=== PATIENT | male | born 1945 | race Hispanic/Latino ===

== ENCOUNTER 2019-07-10 16:42 | Inpatient (IN) | payer MEDICARE, OTHER ==
[2019-07-10] MEDS ORDERED: Diltiazem 125 MG/25 ML ONE (16:59)
[2019-07-10 17:49] LABS: #Eosinphils 0.2 thou/uL (0.0-0.7); #Lymphocytes 0.7 thou/uL (1.20-3.40); #Monocytes 0.9 thou/uL (0.11-0.59); #Neutrophils 8.5 thou/uL (1.40-6.50); %Basophils 0.1 % (0.0-1.0); %Eosinophils 1.7 % (0.0-10.0); %Lymphocytes 6.8 % (21.0-51.0); %Monocytes 9.1 % (0.0-10.0); %Neutrophils 82.3 % (42.0-75.0); Hemoglobin 14.6 g/dL (14.0-18.0); Mean Corpuscular HGB CONC 33.4 g/dL (32.0-36.0); Mean Corpuscular Hemoglobin 31.1 pg (27.0-31.0); Mean Corpuscular Volume 93.1 fL (78.0-98.0); Mean Platelet Volume 8.3 fL (7.4-10.4); Platelet Count 112 thou/uL (130-400); RBC Distribution Width 12.5 % (11.5-14.5); Red Blood Cell (RBC) Count 4.69 mill/uL (4.70-6.10); White Blood Cell (WBC) Count 10.3 thou/uL (4.8-10.8)
[2019-07-10 18:00] LABS: ALT (SGPT) 50 U/L (8-55); AST (SGOT) 59 U/L (5-34); Alkaline Phosphatase 54 U/L (40-110); Anion Gap 16 mmol/L (10-20); BUN (Urea Nitrogen) 12 mg/dL (8.4-25.7); Bilirubin, Total 1.5 mg/dL (0.2-1.2); CK (CPK) 120 U/L (30-200); Calc. Creatinine Clearance 0 mL/min (70-130); Calcium 9.2 mg/dL (7.8-10.44); Carbon Dioxide 20 mmol/L (23-31); Chloride 99 mmol/L (98-107); Estimated GFR-MDRD 82; Globulin 3.1 g/dL (2.4-3.5); Glucose 174 mg/dL (83-110); Lipase 9 U/L (8-78); Potassium 4.6 mmol/L (3.5-5.1); Protein, Total 7.1 g/dL (5.8-8.1); Sodium 130 mmol/L (136-145)
[2019-07-10 18:03] LABS: Platelet Morphology Comment Appears Decreased; RBC Morphology Normal
[2019-07-10 18:18] LABS: CKMB 3.1 ng/mL (0-6.6)
[2019-07-10] MEDS ORDERED: Aspirin Chewable 81 MG TAB ONE (18:33)
[2019-07-10] MEDS ORDERED: Ondansetron ODT 4 MG TAB ONE (18:33)
--- NOTE | 2019-07-10 18:49 | RAD ---
SINGLE VIEW OF THE CHEST: Comparison: None. History: Chest pain, shortness of breath. FINDINGS: Single view of the chest shows a normal sized cardiomediastinal silhouette. There is elevation of the right hemidiaphragm. There is no evidence of consolidation, mass or pleural effusion. The bones are unremarkable. IMPRESSION: No evidence of acute cardiopulmonary disease. POS: EAA
[2019-07-10] MEDS ORDERED: Ondansetron PF 4 MG/2 ML Vial IVP PRN (19:04)
[2019-07-10] MEDS ORDERED: Dextrose 5% in Water 1,000 ML IV PRN (19:06)
[2019-07-10] MEDS ORDERED: Dextrose 50% Abboject 50 ML SYRINGE SLOW IVP PRN (19:06)
--- NOTE | 2019-07-10 19:22 | CT ---
CT OF THE CHEST WITHOUT CONTRAST: Comparison: None History: Shortness of breath, cough, fever, chest palpitations. Brittle diabetic. Technique: Multiple contiguous axial images were obtained in a CT of the chest without contrast. Sagi ttal and coronal reformats were performed. FINDINGS: There is a trace left pleural effusion. There are areas of ground glass attenuation in the bilateral lower lobes. These are slightly more central than peripheral in location. No right pleural effusion i s seen. No upper lobe infiltrates are seen. No suspicious pulmonary nodules are seen. The heart is normal in size. Calcifications are seen in the coronary arteries and aorta. No hilar or mediastinal lymphadenopathy are appreciated on this limited noncontrast examination. The visualized subdiaphragmatic structures are unremarkable. Degenerative changes are seen in the spi ne. The chest wall soft tissues are unremarkable. IMPRESSION: Bilateral lower lobe infiltrates with trace left pleural effusion. POS: EAA
[2019-07-10] MEDS ORDERED: cefTRIAXone\\ROCEPHIN 1 GM in Sodium Chloride 0.9% 100 ML IVPB SCH (20:00)
[2019-07-10 20:36] LABS: Troponin I 0.111 ng/mL (< 0.028)
[2019-07-10] MEDS: Azithromycin 500 MG in Sodium Chloride 0.9% 250 ML 250 ML IVPB SCH (22:19)
[2019-07-10 23:26] LABS: Troponin I 0.132 ng/mL (< 0.028)
[2019-07-10] MEDS: cefTRIAXone\\ROCEPHIN 1 GM in Sodium Chloride 0.9% 100 ML IVPB SCH (23:42)
[2019-07-11 05:24] LABS: #Eosinphils 0.2 thou/uL (0.0-0.7); #Lymphocytes 1.3 thou/uL (1.20-3.40); #Monocytes 0.9 thou/uL (0.11-0.59); #Neutrophils 5.5 thou/uL (1.40-6.50); %Basophils 0.4 % (0.0-1.0); %Eosinophils 2.2 % (0.0-10.0); %Lymphocytes 16.8 % (21.0-51.0); %Monocytes 11.4 % (0.0-10.0); %Neutrophils 69.1 % (42.0-75.0); Hemoglobin 13.1 g/dL (14.0-18.0); Mean Corpuscular HGB CONC 33.2 g/dL (32.0-36.0); Mean Corpuscular Hemoglobin 31.2 pg (27.0-31.0); Mean Corpuscular Volume 93.9 fL (78.0-98.0); Mean Platelet Volume 8.3 fL (7.4-10.4); Platelet Count 107 thou/uL (130-400); RBC Distribution Width 12.5 % (11.5-14.5); Red Blood Cell (RBC) Count 4.19 mill/uL (4.70-6.10)
[2019-07-11 05:44] LABS: Anion Gap 13 mmol/L (10-20); BUN (Urea Nitrogen) 17 mg/dL (8.4-25.7); Calc. Creatinine Clearance 128 mL/min (70-130); Carbon Dioxide 26 mmol/L (23-31); Chloride 99 mmol/L (98-107); Estimated GFR-MDRD 77; Glucose 123 mg/dL (83-110); Potassium 4.1 mmol/L (3.5-5.1); Sodium 134 mmol/L (136-145)
[2019-07-11] MEDS: Diltiazem 125 MG in Sodium Chloride 0.9% 100 ML IVPB SCH (08:19)
[2019-07-11] MEDS: Enoxaparin Sodium 40 MG/0.4 ML SYRINGE SC SCH (08:19)
--- NOTE | 2019-07-11 16:18 | PDOC.HOSPP ---
- Subjective Encounter Date: 07/11/19 Subjective: SOB - Objective Vital Signs & Weight: Vital Signs (12 hours) Temp Pulse Resp BP Pulse Ox 07/11/19 12:00 97.1 F L 69 18 133/63 96 07/11/19 08:20 96.9 F L 98 18 173/79 H 95 Weight Weight 290 lb I&O: 07/10/19 07/11/19 07/12/19 06:59 06:59 06:59 Intake Total 720 Output Total 300 800 Balance 420 -800 Result Diagrams: 07/11/19 05:03 07/11/19 05:03 Additional Labs: Accuchecks 07/11/19 07/10/19 05:52 23:51 POC Glucose 128 H 122 H Hospitalist ROS - Medication Medications: Active Medications Generic Name Dose Route Start Last Admin Trade Name Freq PRN Reason Stop Dose Admin Enoxaparin Sodium 40 mg 07/11/19 09:00 07/11/19 08:19 Lovenox SC 40 mg 0900 LATHA Administration Azithromycin 500 mg/ Sodium 250 mls @ 250 mls/hr 07/10/19 22:00 07/10/19 22: 19 Chloride IVPB 250 mls Q24HR LATHA Administration Ceftriaxone Sodium 1 gm/ 100 mls @ 200 mls/hr 07/10/19 23:00 07/10/19 23:42 Sodium Chloride IVPB 100 mls Q24HR LATHA Administration Diltiazem HCl 125 mg/ Sodium 125 mls @ 5 mls/hr 07/11/19 01:30 07/11/19 08:19 Chloride IVPB 125 mls INF LATHA Administration Protocol 5 MG/HR Sodium Chloride 10 ml 07/10/19 21:00 07/11/19 08:19 Flush - Normal Saline IVF 10 ml Q12HR LATHA Administration - Exam General Appearance: awake alert Eye: PERRL Neck: supple Heart: RRR Respiratory: rhonchi, tachypneic Gastrointestinal: soft, non-tender, normal bowel sounds Neurological: cranial nerve grossly intact Hosp A/P (1) Sepsis Code(s): A41.9 - SEPSIS, UNSPECIFIED ORGANISM Status: Acute (2) RML pneumonia Code(s): J18.9 - PNEUMONIA, UNSPECIFIED ORGANISM Status: Acute - Plan COVID -TIVE. Continue Ceftriaxone and Azithromycin.
--- NOTE | 2019-07-11 19:35 | HP ---
CHIEF COMPLAINT: Shortness of breath. HISTORY OF PRESENT ILLNESS: The patient is a 73-year-old male with past medical history of diabetes, hypertension, TIA, and obesity, who presented to the hospital with complaints of dizziness and shortness of breath and palpitations. The patient was brought by the EMS and en route, his heart rate was found to be 160 and he was given one dose of adenosine with no effect. He was also given one dose of diltiazem 20 mg. His heart rate dropped and he was maintained on a diltiazem drip and brought to the ER. In the ER, the patient was complaining of shortness of breath and cough and was found to be febrile and slightly hypoxic. He denies chest pain or any sick contact. CT scan of the chest revealed right middle lobe consolidation. REVIEW OF SYSTEMS: Negative except as noted in HPI. PAST MEDICAL HISTORY: As discussed above. SOCIAL HISTORY: The patient denies alcohol use or illicit drug use. He is a current tobacco smoker. PAST SURGICAL HISTORY: No past surgical history. ALLERGIES: NO KNOWN ALLERGIES. PHYSICAL EXAMINATION: GENERAL: The patient was alert and oriented x3. HEENT: Head is normocephalic and atraumatic. Extraocular muscles are intact. NECK: Supple. CHEST: Showed wheezing bilaterally. CARDIOVASCULAR: Revealed tachycardia with irregular rhythm. No murmurs, rubs, or gallops. ABDOMEN: Soft and nontender. Bowel sounds were heard. NEUROLOGIC: Revealed normal cranial nerves 2 through 12 and no motor or sensory deficits. ASSESSMENT: 1. Sepsis. 2. Right middle lobe pneumonia. 3. Atrial tachycardia. PLAN: 1. Start azithromycin and ceftriaxone for community-acquired pneumonia. 2. Obtain coronavirus test. 3. Continue diltiazem drip. Job ID: [id number]
[2019-07-11] MEDS: Azithromycin 500 MG in Sodium Chloride 0.9% 250 ML 250 ML IVPB SCH (20:21)
[2019-07-12] MEDS: cefTRIAXone\\ROCEPHIN 1 GM in Sodium Chloride 0.9% 100 ML IVPB SCH ×2 (01:56→22:40)
[2019-07-12] MEDS: Enoxaparin Sodium 40 MG/0.4 ML SYRINGE SC SCH (09:21)
[2019-07-12] MEDS: PROVENTIL INHALER 6.7 G (200 INHALATIONS) INH SCH ×3 (10:23→18:56)
[2019-07-12] MEDS: Diltiazem 125 MG in Sodium Chloride 0.9% 100 ML IVPB SCH (13:37)
[2019-07-12] MEDS: methylPREDNISolone Sod Succ 40 MG VIAL IVP SCH ×3 (13:37→23:40)
--- NOTE | 2019-07-12 15:11 | PDOC.HOSPP ---
- Subjective Encounter Date: 07/12/19 Subjective: Feels better. - Objective Vital Signs & Weight: Vital Signs (12 hours) Temp Pulse Resp BP Pulse Ox 07/12/19 11:54 98.7 F 84 23 H 150/70 H 97 07/12/19 08:00 98.1 F 61 17 175/75 H 95 07/12/19 04:00 122 H 139/67 Weight Weight 290 lb I&O: 07/11/19 07/12/19 07/13/19 06:59 06:59 06:59 Intake Total 720 1565 Output Total 300 2650 Balance 420 -1085 Result Diagrams: 07/11/19 05:03 07/11/19 05:03 Additional Labs: Accuchecks 07/12/19 07/12/19 07/11/19 11:17 06:04 20:48 POC Glucose 185 H 140 H 178 H 07/11/19 07/11/19 16:58 12:02 POC Glucose 139 H 146 H Hospitalist ROS - Medication Medications: Active Medications Generic Name Dose Route Start Last Admin Trade Name Freq PRN Reason Stop Dose Admin Albuterol Sulfate 2 puff 07/12/19 11:00 07/12/19 14:01 Proventil Hfa INH 2 puff [id number] LATHA Administration Enoxaparin Sodium 40 mg 07/11/19 09:00 07/12/19 09:21 Lovenox SC 40 mg 0900 LATHA Administration Azithromycin 500 mg/ Sodium 250 mls @ 250 mls/hr 07/10/19 22:00 07/11/19 20: 21 Chloride IVPB 250 mls Q24HR LATHA Administration Ceftriaxone Sodium 1 gm/ 100 mls @ 200 mls/hr 07/10/19 23:00 07/12/19 01:56 Sodium Chloride IVPB 100 mls Q24HR LATHA Administration Diltiazem HCl 125 mg/ Sodium 125 mls @ 5 mls/hr 07/11/19 01:30 07/12/19 13:37 Chloride IVPB 125 mls INF LATHA Administration Protocol 5 MG/HR Methylprednisolone Sodium Succinate 40 mg 07/12/19 12:00 07/12/19 13:37 Solu-Medrol IVP 40 mg Q6HR LATHA Administration Metoprolol Succinate 50 mg 07/11/19 21:00 07/12/19 09:21 Toprol Xl PO 50 mg BID LATHA Administration Sodium Chloride 10 ml 07/10/19 21:00 07/12/19 09:21 Flush - Normal Saline IVF Not Given Q12HR LATHA - Exam General Appearance: NAD Neck: supple Respiratory: wheezes Gastrointestinal: soft, non-tender, non-distended, normal bowel sounds Neurological: cranial nerve grossly intact Psychiatric: normal affect Hosp A/P (1) Sepsis Code(s): A41.9 - SEPSIS, UNSPECIFIED ORGANISM Status: Acute (2) [facility] pneumonia Code(s): J18.9 - PNEUMONIA, UNSPECIFIED ORGANISM Status: Acute - Plan COVID -TIVE. Continue Ceftriaxone and Azithromycin.
[2019-07-12] MEDS: Azithromycin 500 MG in Sodium Chloride 0.9% 250 ML 250 ML IVPB SCH (21:28)
[2019-07-12] MEDS: HumaLOG 300 UNITS/3 ML VIAL SC PRN (21:29)
[2019-07-12] MEDS ORDERED: Melatonin 3 MG TAB PO PRN (23:27)
[2019-07-12] MEDS ORDERED: Melatonin 3 MG TAB PO SCH (23:30)
[2019-07-13] MEDS: Acetaminophen 325 MG TAB PO PRN ×2 (04:03→21:27)
[2019-07-13] MEDS: methylPREDNISolone Sod Succ 40 MG VIAL IVP SCH ×4 (05:16→23:56)
[2019-07-13] MEDS: PROVENTIL INHALER 6.7 G (200 INHALATIONS) INH SCH ×2 (07:44→11:24)
[2019-07-13] MEDS: Enoxaparin Sodium 40 MG/0.4 ML SYRINGE SC SCH (08:31)
[2019-07-13] MEDS ORDERED: Amiodarone 150 MG in Dextrose 5% in Water 100 ML IVPB SCH (11:45)
--- NOTE | 2019-07-13 11:47 | PDOC.HOSPP ---
- Subjective Encounter Date: 07/13/19 Subjective: Feels better No SOB Remails in Afib with RVR. - Objective Vital Signs & Weight: Vital Signs (12 hours) Temp Pulse Resp BP Pulse Ox 07/13/19 11:24 122 H 24 H 93 L 07/13/19 08:25 95 07/13/19 07:55 96.5 F L 113 H 16 168/92 H 95 07/13/19 07:47 94 L 07/13/19 07:44 118 H 20 94 L 07/13/19 03:45 97.4 F L 118 H 17 139/93 H 93 L 07/13/19 00:34 98.3 F 97 20 133/77 96 Weight Weight 290 lb I&O: 07/12/19 07/13/19 07/14/19 06:59 06:59 06:59 Intake Total 1565 1375 Output Total 2650 1685 Balance -1085 -310 Result Diagrams: 07/11/19 05:03 07/11/19 05:03 Additional Labs: Accuchecks 07/13/19 07/13/19 07/13/19 10:32 05:56 03:12 POC Glucose 264 H 183 H 195 H 07/12/19 07/12/19 20:57 17:14 POC Glucose 246 H 177 H Hospitalist ROS - Medication Medications: Active Medications Generic Name Dose Route Start Last Admin Trade Name Freq PRN Reason Stop Dose Admin Acetaminophen 650 mg 07/10/19 19:04 07/13/19 04:03 Tylenol PO 650 mg Q4H PRN Administration Headache/Fever/Mild Pain (1-3) Albuterol Sulfate 2 puff 07/12/19 11:00 07/13/19 11:24 Proventil Hfa INH 2 puff [id number] LATHA Administration Azithromycin 500 mg/ Sodium 250 mls @ 250 mls/hr 07/10/19 22:00 07/12/19 21: 28 Chloride IVPB 250 mls Q24HR LATHA Administration Ceftriaxone Sodium 1 gm/ 100 mls @ 200 mls/hr 07/10/19 23:00 07/12/19 22:40 Sodium Chloride IVPB 100 mls Q24HR LATHA Administration Insulin Human Lispro 0 units 07/12/19 21:14 07/12/19 21:29 Humalog SC 2 unit .BEDTIME SLIDING SC PRN Administration Bedtime Correctional Scale Methylprednisolone Sodium Succinate 40 mg 07/12/19 12:00 07/13/19 05:16 Solu-Medrol IVP 40 mg Q6HR LATHA Administration Sodium Chloride 10 ml 07/10/19 21:00 07/13/19 08:31 Flush - Normal Saline IVF Not Given Q12HR LATHA Sodium Chloride 10 ml 07/10/19 19:33 07/13/19 05:16 Flush - Normal Saline IVF 10 ml PRN PRN Administration Saline Flush - Exam General Appearance: awake alert ENT: normocephalic atraumatic Neck: supple, no JVD Heart - other findings: IRRIGULAR TACHYCARDIA Gastrointestinal: soft, non-tender, non-distended, normal bowel sounds Neurological: cranial nerve grossly intact, no weakness Hosp A/P (1) Sepsis Code(s): A41.9 - SEPSIS, UNSPECIFIED ORGANISM Status: Acute (2) RML pneumonia Code(s): J18.9 - PNEUMONIA, UNSPECIFIED ORGANISM Status: Acute - Plan COVID -TIVE. Continue Ceftriaxone and Azithromycin. Afib with RVR despite diltiazem drip. Switch to Amiodarone bolus and drip. Metoprolol Succinate 100 mg PO BID. DC albuterol. Ipratropium Neb q6. Cont steroids.
[2019-07-13] MEDS: Amiodarone 450 MG in Dextrose 5% in Water 250 ML IVPB SCH (12:44)
[2019-07-13] MEDS: Ipratropium Bromide 2.5 ml Neb NEB SCH ×2 (13:07→19:05)
[2019-07-13 16:13] LABS: ALT (SGPT) 65 U/L (8-55); AST (SGOT) 67 U/L (5-34); Albumin 4.4 g/dL (3.4-4.8); Alkaline Phosphatase 74 U/L (40-110); Anion Gap 15 mmol/L (10-20); BUN (Urea Nitrogen) 30 mg/dL (8.4-25.7); Bilirubin, Total 0.8 mg/dL (0.2-1.2); Calc. Creatinine Clearance 96 mL/min (70-130); Calcium 9.3 mg/dL (7.8-10.44); Carbon Dioxide 25 mmol/L (23-31); Chloride 97 mmol/L (98-107); Estimated GFR-MDRD 56; Globulin 2.8 g/dL (2.4-3.5); Glucose 214 mg/dL (83-110); Magnesium 2.2 mg/dL (1.6-2.6); Potassium 4.7 mmol/L (3.5-5.1); Protein, Total 7.2 g/dL (5.8-8.1); Sodium 132 mmol/L (136-145)
[2019-07-13] MEDS: HumaLOG 300 UNITS/3 ML VIAL SC PRN ×2 (17:13→21:27)
[2019-07-13] MEDS: Apixaban 5 MG TAB PO SCH (20:21)
[2019-07-13] MEDS: Azithromycin 500 MG in Sodium Chloride 0.9% 250 ML 250 ML IVPB SCH (22:16)
[2019-07-13] MEDS: diphenhydrAMINE 50 MG/ML VIAL IVP SCH (23:03)
[2019-07-13] MEDS: Lorazepam 2 MG/ML VIAL SLOW IVP PRN (23:33)
[2019-07-13] MEDS: cefTRIAXone\\ROCEPHIN 1 GM in Sodium Chloride 0.9% 100 ML IVPB SCH (23:54)
[2019-07-14] MEDS ORDERED: Haloperidol Lactate 5 MG/ML VIAL SLOW IVP SCH (01:30)
[2019-07-14] MEDS: Ipratropium Bromide 2.5 ml Neb NEB SCH ×5 (01:35→23:31)
[2019-07-14] MEDS: methylPREDNISolone Sod Succ 40 MG VIAL IVP SCH (05:22)
[2019-07-14 05:30] LABS: Anion Gap 19 mmol/L (10-20); BUN (Urea Nitrogen) 46 mg/dL (8.4-25.7); Calc. Creatinine Clearance 67 mL/min (70-130); Calcium 9.6 mg/dL (7.8-10.44); Carbon Dioxide 23 mmol/L (23-31); Chloride 100 mmol/L (98-107); Estimated GFR-MDRD 37; Glucose 111 mg/dL (83-110); Magnesium 2.6 mg/dL (1.6-2.6); Potassium 5.2 mmol/L (3.5-5.1); Sodium 137 mmol/L (136-145)
[2019-07-14 05:37] LABS: Hemoglobin 13.3 g/dL (14.0-18.0); Mean Corpuscular HGB CONC 31.5 g/dL (32.0-36.0); Mean Corpuscular Hemoglobin 29.8 pg (27.0-31.0); Mean Corpuscular Volume 94.8 fL (78.0-98.0); Mean Platelet Volume 8.1 fL (7.4-10.4); Platelet Count 234 thou/uL (130-400); RBC Distribution Width 12.7 % (11.5-14.5); Red Blood Cell (RBC) Count 4.46 mill/uL (4.70-6.10); White Blood Cell (WBC) Count 15.3 thou/uL (4.8-10.8)
[2019-07-14 05:52] LABS: Band 1 % (5-11); Lymphocytes 4 % (21-51); MDiff Complete? YES; Monocytes 4 % (0-10); Neutrophil 91 % (42-75)
[2019-07-14] MEDS ORDERED: Ziprasidone 20 MG VIAL ONE (07:47)
[2019-07-14] MEDS ORDERED: Ziprasidone 20 MG VIAL IM PRN (07:57)
[2019-07-14] MEDS ORDERED: predniSONE 20 MG TAB PO SCH (08:00)
[2019-07-14] MEDS ORDERED: Lorazepam 100 ML IVPB SCH (08:00)
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
[2019-07-14] MEDS: Lorazepam 2 MG/ML VIAL SLOW IVP PRN (08:15)
[2019-07-14] MEDS ORDERED: Lorazepam 20 MG/10ML 100 MG in Sodium Chloride 0.9% 50 ML IVPB SCH (08:30)
[2019-07-14] MEDS ORDERED: cefTRIAXone\\ROCEPHIN 1 GM in Sodium Chloride 0.9% 100 ML IVPB SCH (10:30)
[2019-07-14] MEDS: predniSONE 20 MG TAB PO SCH (11:55)
[2019-07-14] MEDS: Apixaban 5 MG TAB PO SCH (11:55)
--- NOTE | 2019-07-14 12:42 | PDOC.HOSPP ---
- Subjective Encounter Date: 07/14/19 Subjective: The patient became confused and combative this morning. Currently sedated in the CCU. - Objective Vital Signs & Weight: Vital Signs (12 hours) Temp Pulse Resp BP Pulse Ox 07/14/19 12:38 66 16 99 07/14/19 09:15 98 07/14/19 08:40 97.2 F L 07/14/19 06:30 95 07/14/19 06:22 93 16 95 07/14/19 03:45 98.0 F 140 H 22 H 129/77 07/14/19 01:35 141 H 22 H 95 Weight Weight 290 lb Most Recent Monitor Data Heart Rate from ECG 84 NIBP 122/82 NIBP BP-Mean 95 Respiration from ECG 12 SpO2 94 I&O: 07/13/19 07/14/19 07/15/19 06:59 06:59 06:59 Intake Total 1375 1190 Output Total 1685 600 4 Balance -310 590 -4 Result Diagrams: 07/14/19 04:53 07/14/19 04:53 Additional Labs: Accuchecks 07/14/19 07/13/19 07/13/19 04:56 21:00 16:44 POC Glucose 113 H 214 H 203 H Hospitalist ROS - Medication Medications: Active Medications Generic Name Dose Route Start Last Admin Trade Name Freq PRN Reason Stop Dose Admin Acetaminophen 650 mg 07/10/19 19:04 07/13/19 21:27 Tylenol PO 650 mg Q4H PRN Administration Headache/Fever/Mild Pain (1-3) Apixaban 5 mg 07/13/19 21:00 07/14/19 11:55 Eliquis PO Not Given BID LATHA Diphenhydramine HCl 50 mg 07/13/19 23:00 07/13/19 23:03 Benadryl IVP 07/24/19 01:00 50 mg NOW LATHA Administration Ceftriaxone Sodium 1 gm/ 100 mls @ 200 mls/hr 07/10/19 23:00 07/13/19 23:54 Sodium Chloride IVPB 100 mls Q24HR LATHA Administration Amiodarone HCl 450 mg/ 259 mls @ 0 mls/hr 07/13/19 11:45 07/13/19 12:44 Dextrose/Water IVPB 259 mls INF LATHA Administration Protocol Per Protocol Dexmedetomidine HCl 200 mcg/ 50 mls @ 0 mls/hr 07/14/19 10:45 07/14/19 11:38 Sodium Chloride IVPB 50 mls INF LATHA Administration Protocol Per Protocol Insulin Human Lispro 0 units 07/10/19 19:06 07/13/19 17:13 Humalog SC 4 unit .MODERATE SLIDING SC PRN Administration Moderate Correctional Scale Insulin Human Lispro 0 units 07/12/19 21:14 07/13/19 21:27 Humalog SC 2 unit .BEDTIME SLIDING SC PRN Administration Bedtime Correctional Scale Ipratropium [employer] 2.5 ml 07/13/19 13:00 07/14/19 12:38 Atrovent NEB 2.5 ml [id number] LATHA Administration Lorazepam 2 mg 07/13/19 23:18 07/14/19 08:15 Ativan SLOW IVP 2 mg Q6H PRN Administration Anxiety/Agitation Melatonin 3 mg 07/12/19 23:27 07/13/19 20:24 Melatonin PO 3 mg HS PRN Administration Insomnia Metoprolol Succinate 100 mg 07/13/19 21:00 07/14/19 11:55 Toprol Xl PO Not Given BID LATHA Prednisone 20 mg 07/14/19 08:00 07/14/19 11:55 Prednisone PO Not Given QAM-WM LATHA Sodium Chloride 10 ml 07/10/19 21:00 07/14/19 11:55 Flush - Normal Saline IVF 10 ml Q12HR LATHA Administration Sodium Chloride 10 ml 07/10/19 19:33 07/14/19 05:22 Flush - Normal Saline IVF 10 ml PRN PRN Administration Saline Flush - Exam General - other findings: Sleeping ENT: normocephalic atraumatic Neck: supple, no JVD Heart: RRR Respiratory: normal chest expansion, no tachypnea Hosp A/P (1) Sepsis Code(s): A41.9 - SEPSIS, UNSPECIFIED ORGANISM Status: Acute (2) RML pneumonia Code(s): J18.9 - PNEUMONIA, UNSPECIFIED ORGANISM Status: Acute (3) Atrial flutter with rapid ventricular response Code(s): I48.92 - UNSPECIFIED ATRIAL FLUTTER Status: Acute (4) MORA (acute kidney injury) Code(s): N17.9 - ACUTE KIDNEY FAILURE, UNSPECIFIED Status: Acute (5) Acute confusion Code(s): R41.0 - DISORIENTATION, UNSPECIFIED Status: Acute - Plan 07/12: COVID -TIVE. Continue Ceftriaxone and Azithromycin. Afib with RVR despite diltiazem drip. Switch to Amiodarone bolus and drip. Metoprolol Succinate 100 mg PO BID. DC albuterol. Ipratropium Neb q6. Cont steroids. 07/13: The patient is now sedated on precedex. Unclear why he became altered. His rhythm changed to atrial flutter. Check CT head. Continue amiodarone. Start lovenox therapeutic dose if no ICH. Start NS @100cc/hr for new MORA. Continue antibiotics for pneumonia.
[2019-07-14] MEDS: Sodium Chloride 0.9% 1,000 ML IV SCH ×2 (12:52→23:27)
--- NOTE | 2019-07-14 14:08 | EKG ---
Test Reason : Blood Pressure : / mmHG Vent. Rate : 155 BPM Atrial Rate : 156 BPM P-R Int : 000 ms QRS Dur : 104 ms QT Int : 316 ms P-R-T Axes : 000 -63 102 degrees QTc Int : 507 ms Supraventricular tachycardia with occasional Premature ventricular complexes Left anterior fascicular block Cannot rule out Inferior infarct (masked by fascicular block?) , age undetermined Abnormal ECG Confirmed by YANCI KU ([id number]), primer expeditor and drier ALBER MENESES ([id number]) on 07/14/2019 2:07:46 PM Referred By: Confirmed By:YANCI KU
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
--- NOTE | 2019-07-14 15:04 | CT ---
BRAIN CT WITHOUT IV CONTRAST: Date: 07/14/2019 HISTORY: Altered mental status, combative. FINDINGS: There is some atrophy and chronic white matter ischemic change. No focal mass or midline shift. No in tra or extra-axial hemorrhage. Sinuses and mastoids are clear of acute process. IMPRESSION: No significant acute intracranial process. No mass or bleed. POS: [facility]
[2019-07-14] MEDS: Amiodarone 450 MG in Dextrose 5% in Water 250 ML IVPB SCH (15:57)
[2019-07-14] MEDS: HumaLOG 300 UNITS/3 ML VIAL SC PRN (16:50)
[2019-07-14] MEDS: diphenhydrAMINE 50 MG/ML VIAL IVP SCH (23:21)
[2019-07-14] MEDS: cefTRIAXone\\ROCEPHIN 1 GM in Sodium Chloride 0.9% 100 ML IVPB SCH (23:25)
[2019-07-15 04:50] LABS: Band 1 % (5-11); Hemoglobin 13.4 g/dL (14.0-18.0); Lymphocytes 11 % (21-51); MDiff Complete? YES; Mean Corpuscular HGB CONC 33.6 g/dL (32.0-36.0); Mean Corpuscular Hemoglobin 31.7 pg (27.0-31.0); Mean Corpuscular Volume 94.2 fL (78.0-98.0); Monocytes 4 % (0-10); Neutrophil 84 % (42-75); Platelet Count 135 thou/uL (130-400); RBC Distribution Width 12.6 % (11.5-14.5); Red Blood Cell (RBC) Count 4.22 mill/uL (4.70-6.10); White Blood Cell (WBC) Count 7.5 thou/uL (4.8-10.8)
[2019-07-15 04:56] LABS: Anion Gap 15 mmol/L (10-20); BUN (Urea Nitrogen) 51 mg/dL (8.4-25.7); Calc. Creatinine Clearance 104 mL/min (70-130); Calcium 8.5 mg/dL (7.8-10.44); Carbon Dioxide 23 mmol/L (23-31); Chloride 104 mmol/L (98-107); Estimated GFR-MDRD 61; Glucose 173 mg/dL (83-110); Potassium 4.6 mmol/L (3.5-5.1); Sodium 137 mmol/L (136-145)
[2019-07-15] MEDS: Lorazepam 2 MG/ML VIAL SLOW IVP PRN ×2 (05:05→13:46)
[2019-07-15] MEDS: Amiodarone 450 MG in Dextrose 5% in Water 250 ML IVPB SCH ×2 (05:10→21:00)
[2019-07-15] MEDS: Ipratropium Bromide 2.5 ml Neb NEB SCH ×3 (06:26→19:39)
[2019-07-15] MEDS: predniSONE 20 MG TAB PO SCH (09:04)
--- NOTE | 2019-07-15 09:53 | EKG ---
Test Reason : Blood Pressure : / mmHG Vent. Rate : 066 BPM Atrial Rate : 264 BPM P-R Int : 000 ms QRS Dur : 102 ms QT Int : 448 ms P-R-T Axes : 265 -38 -18 degrees QTc Int : 469 ms Atrial flutter with 4:1 A-V conduction Left axis deviation Abnormal ECG When compared with ECG of 10-JUL-2019 16:53, (Unconfirmed) Significant changes have occurred Confirmed by DR. Milagros ESPITIA ([id number]) on 07/15/2019 9:52:39 AM Referred By: JAVED Confirmed By:DR. Milagros ESPITIA
[2019-07-15] MEDS ORDERED: Ipratropium Bromide 2.5 ml Neb ONE (10:18)
--- NOTE | 2019-07-15 10:23 | PRG ---
DATE OF SERVICE: 07/15/2019 SUBJECTIVE: Jacob Alvarado is a little bit more responsive. Still agitated is confused. CT brain is negative. OBJECTIVE: VITAL SIGNS: Maximum temperature is 98, blood pressure 117/76, respiratory rate 18. CHEST: No wheezing or crackles. CARDIAC: Normal S1 and S2. No gallops. ABDOMEN: No masses. LABORATORY DATA: White count is normal. IMPRESSION: Metabolic encephalopathy, lower lobe pneumonia. Cultures are negative. Continue dexamethasone. Continue ceftriaxone. His renal function is much improved. Slow hydration. Pulmonary will follow while in the ICU. Job ID: [id number]
[2019-07-15] MEDS: HumaLOG 300 UNITS/3 ML VIAL SC PRN ×2 (11:23→16:33)
[2019-07-15] MEDS: Sodium Chloride 0.9% 1,000 ML IV SCH (11:23)
--- NOTE | 2019-07-15 14:40 | CON ---
DATE OF CONSULTATION: 07/15/2019 INDICATION FOR CONSULTATION: A 73-year-old gentleman, who has developed atrial flutter. HISTORY OF PRESENT ILLNESS: This is a 73-year-old gentleman, origin, has a history of diabetes, hypertension, and obesity. He apparently was brought to the hospital after he complained of shortness of breath, dizziness, and palpitations. His heart rate was in the 160s and most likely was in atrial flutter, at that time, he was given one dose of adenosine, had no effect, and then he was started on IV diltiazem and brought to the emergency room. Since that time, he became agitated and was placed on Precedex to control some of his violent behavior. Otherwise, he has remained stable, he continues to be in atrial flutter. I believe an Electrophysiology consultation has also been requested. At this time, the patient is in the intensive care unit. Vital signs are stable and heart rate is in the 60s and still shows atrial flutter. PAST MEDICAL HISTORY: He has had no significant complaints except I believe he does have some history of the hypertension and diabetes. He has had a TIA in the past apparently. REVIEW OF SYSTEMS: Please refer to the notes already dictated. SOCIAL HISTORY: He has no history of alcohol or tobacco abuse at this time. He said he stopped smoking about 25 years ago. PAST SURGICAL HISTORY: He denies any surgical history according to the records. ALLERGIES: NONE. MEDICATIONS: 1. Presently, he is being started on amiodarone drip. 2. He is on ceftriaxone. 3. He is also on Precedex. He has also been given; 1. Eliquis. 2. Nebulizer treatments. 3. Metoprolol 100 mg b.i.d. 4. Multivitamin. He has been started on; 1. Prednisone. 2. Thiamin. 3. Tylenol. 4. Other p.r.n. medications. He has been ruled out for COVID apparently. PHYSICAL EXAMINATION: GENERAL: Reveals a middle-aged gentleman. VITAL SIGNS: Blood pressure at this time 122/73, heart rate 69 and shows what appears to be atrial flutter, O2 saturation is 98%, respiratory rate is about 13. HEENT: Unremarkable. CHEST: Actually clear to auscultation without any rales, rhonchi, or wheezing. CARDIOVASCULAR: The rate appears to be regular. I did not hear any gross murmurs. There were no heaves or thrills. ABDOMEN: Shows obesity, soft and nontender. EXTREMITIES: Showed no clubbing, cyanosis, or edema. I cannot palpate pedal pulses. NEUROLOGIC: The patient does appear to be somewhat sleepy or lethargic, but easily awakens. He does answer some questions, whether or not he is completely oriented to place is unclear, but he did say he needs to go home to see his family in [place]. . LABORATORY DATA: Today show a WBC of 7.5, hemoglobin 13.4, hematocrit of 39.8, and platelet count is 135,000. His sodium is 137, potassium 4.6. His BUN was 51 with creatinine of 1.18, blood sugar was 173. His cardiac enzymes on arrival here were indeterminate, but was still increasing from the time he got here on 07/09, the first set of troponin-I was 0.09 and increased up to 0.132 and I did not see any further cardiac enzymes were obtained. We will try to obtain some cardiac enzymes, but I would suspect it would be elevated due to the atrial flutter and rapid ventricular response. IMPRESSION: 1. Atrial flutter, most likely new onset. Electrophysiology has already been consulted. I would agree with continuing the amiodarone at this time. EKG does show what appeared to be atrial flutter when the patient arrived on 07/09. It appears that he has been in atrial flutter since that time. 2. History of diabetes, this will be dealt with by the primary care service. 3. Agitation. He has been in intensive care unit due to the Precedex infusion to control his behavior. 4. Probable pneumonia, on chest x-ray it appeared to be a right middle lobe pneumonia. The WBC was elevated. The patient may have underlying sepsis. At this time, I would agree with the present management, and most likely, he will need to undergo electrophysiological evaluation, possible ablation of the atrial flutter since this particular arrhythmia is very difficult to treat by medication. At this time, we will continue to control the heart rate and I would agree with the oral anticoagulation at this time. We will review the echocardiogram and further recommendations will depend on the results of the echo. Job ID: [id number] [facility]
[2019-07-15] MEDS ORDERED: diphenhydrAMINE 25 MG CAP PO PRN (15:47)
[2019-07-15] MEDS ORDERED: Lorazepam 2 MG/ML VIAL SLOW IVP PRN (15:48)
--- NOTE | 2019-07-15 15:58 | RAD ---
Chest AP view INDICATION: 73-year-old male with chest congestion and wheezing COMPARISON: Prior exam dated July 10, 2019 FINDINGS: Lungs: There is worsening perihilar interstitial and airspace opacities. Cardiac silhouette: There is stable moderate cardiomegaly Pulmonary vasculature: There is worsening pulmonary vascular congestion Pleural spaces: There is stable elevation the right hemidiaphragm Upper abdomen: No abnormality seen. Osseous structures: No acute osseous abnormality. Additional findings: None. IMPRESSION: Moderate cardiomegaly worsening pulmonary vascular congestion and worsening perihilar interstitial an d airspace opacities may reflect a component of volume overload or CHF. The perihilar interstitial airspace opacities may also reflect worsening pneumonia. Recommend correlation with the clinical exam . Continued radiographic follow-up is recommended.
[2019-07-15] MEDS ORDERED: Azithromycin 250 MG TAB PO SCH (16:08)
--- NOTE | 2019-07-15 16:09 | PDOC.HOSPP ---
- Subjective Encounter Date: 07/15/19 Encounter Time: 03:30 Subjective: The patient extremely confused and abusive per nursing staff. He was calm with precedex. He got ativan and benadryl overnight. - Objective Vital Signs & Weight: Vital Signs (12 hours) Temp Pulse Resp Pulse Ox 07/15/19 12:58 69 20 99 07/15/19 10:22 90 20 100 07/15/19 08:00 100 07/15/19 07:00 98.0 F 07/15/19 06:28 93 L 07/15/19 06:26 93 20 93 L 07/15/19 05:33 95 Weight Weight 290 lb Most Recent Monitor Data Heart Rate from ECG 70 NIBP 127/74 NIBP BP-Mean 91 Respiration from ECG 20 SpO2 97 I&O: 07/14/19 07/15/19 07/16/19 06:59 06:59 06:59 Intake Total 1190 3029.6 475 Output Total 600 1635 400 Balance 590 1394.6 75 Result Diagrams: 07/15/19 03:52 07/15/19 03:52 Additional Labs: Accuchecks 07/15/19 07/15/19 07/14/19 11:20 05:49 21:04 POC Glucose 159 H 143 H 179 H 07/14/19 16:28 POC Glucose 162 H Hospitalist ROS - Review of Systems Constitutional: denies: fever, chills - Medication Medications: Active Medications Generic Name Dose Route Start Last Admin Trade Name Freq PRN Reason Stop Dose Admin Acetaminophen 650 mg 07/10/19 19:04 07/13/19 21:27 Tylenol PO 650 mg Q4H PRN Administration Headache/Fever/Mild Pain (1-3) Ceftriaxone Sodium 1 gm/ 100 mls @ 200 mls/hr 07/10/19 23:00 07/14/19 23:25 Sodium Chloride IVPB 100 mls Q24HR LATHA Administration Amiodarone HCl 450 mg/ 259 mls @ 0 mls/hr 07/13/19 11:45 07/15/19 05:10 Dextrose/Water IVPB 259 mls INF LATHA Administration Protocol Per Protocol Sodium Chloride 1,000 mls @ 100 mls/hr 07/14/19 12:45 07/15/19 11:23 Normal Saline 0.9% IV 1,000 mls .Q10H LATHA Administration Insulin Human Lispro 0 units 07/10/19 19:06 07/15/19 11:23 Humalog SC 2 unit .MODERATE SLIDING SC PRN Administration Moderate Correctional Scale Insulin Human Lispro 0 units 07/12/19 21:14 07/13/19 21:27 Humalog SC 2 unit .BEDTIME SLIDING SC PRN Administration Bedtime Correctional Scale Ipratropium [place] 2.5 ml 07/13/19 13:00 07/15/19 12:58 Atrovent NEB 2.5 ml [id number] LATHA Administration Melatonin 3 mg 07/12/19 23:27 07/13/19 20:24 Melatonin PO 3 mg HS PRN Administration Insomnia Metoprolol Succinate 100 mg 07/13/19 21:00 07/15/19 09:03 Toprol Xl PO 100 mg BID LATHA Administration Prednisone 20 mg 07/14/19 08:00 07/15/19 09:04 Prednisone PO 20 mg QAM-WM LATHA Administration Sodium Chloride 10 ml 07/10/19 21:00 07/15/19 09:04 Flush - Normal Saline IVF 10 ml Q12HR LATHA Administration Sodium Chloride 10 ml 07/10/19 19:33 07/14/19 05:22 Flush - Normal Saline IVF 10 ml PRN PRN Administration Saline Flush - Exam General Appearance: NAD, awake alert Eye: PERRL, anicteric sclera ENT: normocephalic atraumatic, no oropharyngeal lesions Neck: supple, no JVD Heart: RRR, no murmur, no gallops, no rubs Respiratory - other findings: significant wheezing Gastrointestinal: soft, non-tender, non-distended, normal bowel sounds Extremities: no cyanosis, no clubbing, 2+ LE edema (in upper and lower extremities) Skin: normal turgor, no lesions, no rashes Neurological: cranial nerve grossly intact, no focal deficits, no new deficit Hosp A/P - Plan CT brain: no acute process Chest X ray 07/14: moderate cardiomegaly, worsening bilateral opacities vs edema ECHO: EF 50-55%, moderate MR, moderate TR This is a 73 year old male who presented with pneumonia, transferred to CCU For agitation and encephalopathy Acute encephalopathy - unclear etiology - on precedex drip. Possibly alcohol withdrawal? - ativan prn - continue thiamine and folic acid Acute hypoxic respiratory failure secondary to pneumonia vs pulm congestion - patient on 2L nasal cannula -chest X ray worsening - cotninue ceftriaxone, currently day 5. Received azithro 07/09 - 07/12. Will switch to doxycycline for few more days - will give one dose of 20 mg IV lasix due to edema. ECHO showed no wall motion abnormalities - troponin trended up to 0.132, repeat in am - will give one dose of 20 mg IV lasix Aflutter - on amiodarone drip - cardiology following - ECHO shows no sign of ischemia Anemia - hemoglobin stable, will monitor
[2019-07-15] MEDS ORDERED: diphenhydrAMINE 25 MG in Sodium Chloride 0.9% 50 ML IVPB PRN (16:11)
[2019-07-15] MEDS ORDERED: Furosemide 20 MG/2 ML VIAL SLOW IVP SCH (16:15)
[2019-07-15] MEDS ORDERED: Furosemide 40 MG/4 ML VIAL SLOW IVP SCH (16:15)
[2019-07-15] MEDS: cefTRIAXone\\ROCEPHIN 1 GM in Sodium Chloride 0.9% 100 ML IVPB SCH (22:05)
[2019-07-16] MEDS: Ipratropium Bromide 2.5 ml Neb NEB SCH ×4 (01:05→18:30)
[2019-07-16 04:27] LABS: Anion Gap 14 mmol/L (10-20); BUN (Urea Nitrogen) 48 mg/dL (8.4-25.7); Calc. Creatinine Clearance 100 mL/min (70-130); Calcium 8.6 mg/dL (7.8-10.44); Carbon Dioxide 25 mmol/L (23-31); Chloride 103 mmol/L (98-107); Estimated GFR-MDRD 58; Glucose 139 mg/dL (83-110); Sodium 137 mmol/L (136-145)
[2019-07-16 04:36] LABS: Hemoglobin 13.7 g/dL (14.0-18.0); Lymphocytes 7 % (21-51); MDiff Complete? YES; Mean Corpuscular HGB CONC 32.8 g/dL (32.0-36.0); Mean Corpuscular Hemoglobin 31.5 pg (27.0-31.0); Mean Platelet Volume 8.6 fL (7.4-10.4); Monocytes 16 % (0-10); Neutrophil 77 % (42-75); Platelet Count 148 thou/uL (130-400); RBC Distribution Width 12.6 % (11.5-14.5); Red Blood Cell (RBC) Count 4.34 mill/uL (4.70-6.10)
[2019-07-16] MEDS: predniSONE 20 MG TAB PO SCH (08:55)
[2019-07-16] MEDS: Multivitamin W/ Minerals 1 TAB PO SCH (08:57)
[2019-07-16] MEDS: Thiamine 100 MG TAB PO SCH (08:57)
[2019-07-16] MEDS ORDERED: DC Sedation Protocol FS ONE (09:44)
--- NOTE | 2019-07-16 10:25 | PRG ---
DATE OF SERVICE: 07/16/2019 SUBJECTIVE: This morning, he is still agitated and lethargic, but arousable. OBJECTIVE: VITAL SIGNS: Temperature 98, pulse 68, blood pressure 127/83, O2 saturations 96%, respiratory rate 18. CHEST: No wheezing or crackles. CARDIAC: Normal S1 and S2. No gallops. ABDOMEN: No masses. LABORATORY DATA: Lytes normal. . Glucose 142. DIAGNOSTIC DATA: X-ray taken today shows slight cardiomegaly. Some cephalization. IMPRESSION: Metabolic encephalopathy, morbid obesity, normal ejection fraction, and mild azotemia. PLAN: I will continue his Rocephin, PT supportive care. All cultures are negative. He can be transferred out of the ICU with a sitter since he still is agitated and encephalopathic. Job ID: [id number]
[2019-07-16] MEDS: Amiodarone 450 MG in Dextrose 5% in Water 250 ML IVPB SCH ×2 (10:51→22:49)
[2019-07-16] MEDS: HumaLOG 300 UNITS/3 ML VIAL SC PRN ×2 (10:53→18:25)
--- NOTE | 2019-07-16 14:28 | PDOC.HOSPP ---
- Subjective Encounter Date: 07/16/19 Encounter Time: 11:30 Subjective: The patient is doing better. He is oriented times three per nursing staff and more responsive. He did get lasix yesterday and wet his bed multiple times. No longer agitated. Nursing thinks that he was sleep deprived for mulitple days which caused this. Chest congestion has improved per patient and is coughing less - Objective Vital Signs & Weight: Vital Signs (12 hours) Temp Pulse Resp BP Pulse Ox 07/16/19 13:35 97.9 F 105 H 21 H 149/89 H 97 07/16/19 12:57 85 18 99 07/16/19 12:00 98.7 F 07/16/19 08:00 97.8 F 94 L 07/16/19 07:34 68 14 100 07/16/19 04:00 97.8 F Weight Weight 290 lb Most Recent Monitor Data Heart Rate from ECG 93 NIBP 108/65 NIBP BP-Mean 79 Respiration from ECG 17 SpO2 93 I&O: 07/15/19 07/16/19 07/17/19 06:59 06:59 06:59 Intake Total 3029.6 2953 782 Output Total 1635 750 650 Balance 1394.6 2203 132 Result Diagrams: 07/16/19 03:35 07/16/19 03:35 Additional Labs: Accuchecks 07/15/19 07/15/19 20:45 16:25 POC Glucose 142 H 182 H Hospitalist ROS - Review of Systems Constitutional: denies: fever, chills - Medication Medications: Active Medications Generic Name Dose Route Start Last Admin Trade Name [place] PRN Reason Stop Dose Admin Acetaminophen 650 mg 07/10/19 19:04 07/13/19 21:27 Tylenol PO 650 mg Q4H PRN Administration Headache/Fever/Mild Pain (1-3) Ceftriaxone Sodium 1 gm/ 100 mls @ 200 mls/hr 07/10/19 23:00 07/15/19 22:05 Sodium Chloride IVPB 100 mls Q24HR LATHA Administration Amiodarone HCl 450 mg/ 259 mls @ 0 mls/hr 07/13/19 11:45 07/16/19 10:51 Dextrose/Water IVPB 259 mls INF LATHA Administration Protocol Per Protocol Dexmedetomidine HCl 400 mcg/ 100 mls @ 0 mls/hr 07/15/19 14:00 07/16/19 05:46 Sodium Chloride IVPB 100 mls INF LATHA Administration Protocol Per Protocol Doxycycline Hyclate 100 mg/ 100 mls @ 100 mls/hr 07/15/19 17:00 07/16/19 05: 45 Sodium Chloride IVPB 100 mls 0500,1700 LATHA Administration Insulin Human Lispro 0 units 07/10/19 19:06 07/16/19 10:53 Humalog SC 2 unit .MODERATE SLIDING SC PRN Administration Moderate Correctional Scale Insulin Human Lispro 0 units 07/12/19 21:14 07/13/19 21:27 Humalog SC 2 unit .BEDTIME SLIDING SC PRN Administration Bedtime Correctional Scale Ipratropium [place] 2.5 ml 07/13/19 13:00 07/16/19 12:57 Atrovent NEB 2.5 ml [id number] LATHA Administration Iron/Minerals/Multivitamins 1 tab 07/16/19 09:00 07/16/19 08:57 Theragran M PO 07/19/19 09:01 1 tab DAILY LATHA Administration Lorazepam 2 mg 07/15/19 15:48 07/15/19 17:10 Ativan SLOW IVP 2 mg Q4H PRN Administration Anxiety/Agitation Melatonin 3 mg 07/12/19 23:27 07/13/19 20:24 Melatonin PO 3 mg HS PRN Administration Insomnia Metoprolol Succinate 100 mg 07/13/19 21:00 07/16/19 08:55 Toprol Xl PO 100 mg BID LATHA Administration Prednisone 20 mg 07/14/19 08:00 07/16/19 08:55 Prednisone PO 20 mg QAM-WM LATHA Administration Sodium Chloride 10 ml 07/10/19 21:00 07/16/19 09:02 Flush - Normal Saline IVF 10 ml Q12HR LATHA Administration Sodium Chloride 10 ml 07/10/19 19:33 07/14/19 05:22 Flush - Normal Saline IVF 10 ml PRN PRN Administration Saline Flush Thiamine HCl 100 mg 07/16/19 09:00 07/16/19 08:57 Thiamine PO 07/19/19 09:01 100 mg DAILY LATHA Administration - Exam General Appearance: NAD, awake alert General - other findings: obese Eye: PERRL, anicteric sclera ENT: normocephalic atraumatic, no oropharyngeal lesions Neck: no JVD Heart: RRR, no murmur, no gallops, no rubs Respiratory: CTAB, no wheezes, no rales, no ronchi Respiratory - other findings: diffuse wheezing mild Gastrointestinal: soft, non-tender, non-distended Extremities - other findings: mild edema Skin: normal turgor, no lesions, no rashes Neurological: cranial nerve grossly intact, normal sensation to touch, no focal deficits, no new deficit Musculoskeletal: normal tone, normal strength, no muscle wasting Hosp A/P - Plan CT brain: no acute process Chest X ray 07/14: moderate cardiomegaly, worsening bilateral opacities vs edema ECHO: EF 50-55%, moderate MR, moderate TR This is a 73 year old male who presented with pneumonia, transferred to CCU For agitation and encephalopathy Acute encephalopathy - unclear etiology. Precedex drip off. Could have been from alcohol withdrawal vs sleep deprivation - continue thiamine and folic acid Acute hypoxic respiratory failure secondary to pneumonia vs pulm congestion - patient on room air - continue ceftriaxone day 08/26 - s/p azithro 07/09 - 07/12. Doxycycline started 07/14, continue for two more days - s/p one dose of IV lasix 07/14 for pulm edema. Will repeat X ray tomorrow - troponin went up to 0.132, repeat troponin in am Aflutter - on amiodarone drip, continue per cardiology - cardiology following - ECHO shows no sign of ischemia Anemia - HB 11, MCV 98, check B12/folate tomorrow. TSh normal Dispo: pending weaning off of amiodarone drip
[2019-07-16] MEDS ORDERED: Furosemide 20 MG/2 ML VIAL SLOW IVP SCH (16:30)
--- NOTE | 2019-07-16 16:30 | PDOC.CPN ---
- Subjective Date: 07/16/19 Time: 16:41 Interval history: The pt seen and examined. No overnight events. No cardiac complaints. - Objective Allergies/Adverse Reactions: Allergies Allergy/AdvReac Type Severity Reaction Status Date / Time No Known Drug Allergies Allergy Verified 07/10/19 22:43 Visit Medications: Current Medications Acetaminophen (Tylenol) 650 mg PO Q4H PRN PRN Reason: Headache/Fever/Mild Pain (1-3) Last Admin: 07/13/19 21:27 Dose: 650 mg Dextrose/Water (Dextrose 50%) 25 gm SLOW IVP PRN PRN PRN Reason: Hypoglycemia Diphenhydramine HCl (Benadryl) 25 mg PO Q6H PRN PRN Reason: Itching & Insomnia Furosemide (Lasix) 20 mg SLOW IVP ONE LATHA Glucagon (Glucagon) 1 mg IM PRN PRN PRN Reason: Hypoglycemia Dextrose/Water (D5w) 1,000 mls @ 0 mls/hr IV .Q0M PRN PRN Reason: Hypoglycemia Ceftriaxone Sodium 1 gm/ (Sodium Chloride) 100 mls @ 200 mls/hr IVPB Q24HR LATHA Last Admin: 07/15/19 22:05 Dose: 100 mls Amiodarone HCl 450 mg/ (Dextrose/Water) 259 mls @ 0 mls/hr IVPB INF LATHA; Protocol Last Admin: 07/16/19 10:51 Dose: 259 mls Doxycycline Hyclate 100 mg/ (Sodium Chloride) 100 mls @ 100 mls/hr IVPB 0500, 1700 LATHA Last Admin: 07/16/19 16:14 Dose: 100 mls Diphenhydramine HCl 25 mg/ (Sodium Chloride) 50.5 mls @ 150 mls/hr IVPB Q6H PRN PRN Reason: Nausea Insulin Human Lispro (Humalog) 0 units SC .MODERATE SLIDING SC PRN PRN Reason: Moderate Correctional Scale Last Admin: 07/16/19 10:53 Dose: 2 unit Insulin Human Lispro (Humalog) 0 units SC .BEDTIME SLIDING SC PRN PRN Reason: Bedtime Correctional Scale Last Admin: 07/13/19 21:27 Dose: 2 unit Ipratropium Chloride (Atrovent) 2.5 ml NEB [id number] LATHA Last Admin: 07/16/19 12:57 Dose: 2.5 ml Iron/Minerals/Multivitamins (Theragran M) 1 tab PO DAILY [facility] Stop: 07/19/19 09:01 Last Admin: 07/16/19 08:57 Dose: 1 tab Lorazepam (Ativan) 2 mg SLOW IVP Q4H PRN PRN Reason: Anxiety/Agitation Last Admin: 07/15/19 17:10 Dose: 2 mg Melatonin (Melatonin) 3 mg PO HS PRN PRN Reason: Insomnia Last Admin: 07/13/19 20:24 Dose: 3 mg Metoprolol Succinate (Toprol Xl) 100 mg PO BID [facility] Last Admin: 07/16/19 08:55 Dose: 100 mg Ondansetron HCl (Zofran) 4 mg IVP Q6H PRN PRN Reason: Nausea/Vomiting Prednisone (Prednisone) 20 mg PO QAM-WM [facility] Last Admin: 07/16/19 08:55 Dose: 20 mg Sodium Chloride (Flush - Normal Saline) 10 ml IVF Q12HR [facility] Last Admin: 07/16/19 09:02 Dose: 10 ml Sodium Chloride (Flush - Normal Saline) 10 ml IVF PRN PRN PRN Reason: Saline Flush Last Admin: 07/14/19 05:22 Dose: 10 ml Thiamine HCl (Thiamine) 100 mg PO DAILY [facility] Stop: 07/19/19 09:01 Last Admin: 07/16/19 08:57 Dose: 100 mg Vital Signs & Weight: Vital Signs Temp Pulse Resp BP BP Pulse Ox 07/16/19 16:06 97.8 F 103 H 20 165/99 H 94 L 07/16/19 13:35 97.9 F 105 H 21 H 149/89 H 97 07/16/19 12:57 85 18 99 07/16/19 12:00 98.7 F 07/16/19 08:00 97.8 F 94 L 07/16/19 07:34 68 14 100 Weight 290 lb - Physical Exam General: alert & oriented x3 HEENT: mucus membranes moist Neck: supple neck Cardiac: regular rate and rhythm, S1/S2 Lungs: decreased breath sounds Neuro: cranial nerve 2-12 intact Extremities: no edema - Labs Result Diagrams: 07/16/19 03:35 07/16/19 03:35 Troponin/CKMB CK-MB (CK-2) 3.1 ng/mL (0-6.6) 07/10/19 17:08 Troponin I 0.132 ng/mL (< 0.028) H 07/10/19 22:54 - Telemetry Supraventricular conduction: atrial flutter - Assessment/Plan Assessment/Plan: 1. New-onset Aflutter with RVR - well controlled HR; On Amiodarone drip and Toprol 100mg BID; Lovenox will be started from tonight for [id number] score 5 (age, HTN, TIA, DM) 2. Sepsis 2/2 Rt PNA - 3. HTN - stable 4. DM type 2 - 5. Obese - strongly recommend weight management 6. hx of TIA 7. Tobacco abuse - he just quit dipping tobacco about 2 months ago. MAR reviewed * Echo with EF 50-55%, mod-severe LAE, mod MR, mild , and mild-mod TR
[2019-07-16] MEDS: Enoxaparin Sodium 120 MG/0.8 ML SYRINGE SC SCH (20:40)
[2019-07-16] MEDS: cefTRIAXone\\ROCEPHIN 1 GM in Sodium Chloride 0.9% 100 ML IVPB SCH (22:45)
[2019-07-17] MEDS: Ipratropium Bromide 2.5 ml Neb NEB SCH ×4 (00:27→18:55)
[2019-07-17] MEDS: Acetaminophen 325 MG TAB PO PRN (01:22)
[2019-07-17] MEDS ORDERED: Labetalol HCl 100 MG/20 ML VIAL SLOW IVP PRN (01:27)
[2019-07-17] MEDS ORDERED: Metoprolol Tartrate 5 MG/5 ML VIAL IVP PRN (01:29)
[2019-07-17] MEDS ORDERED: Cepastat Lozenges 1 LOZ PO PRN (03:46)
[2019-07-17 05:02] LABS: Anion Gap 14 mmol/L (10-20); BUN (Urea Nitrogen) 37 mg/dL (8.4-25.7); Calc. Creatinine Clearance 97 mL/min (70-130); Calcium 9.3 mg/dL (7.8-10.44); Carbon Dioxide 28 mmol/L (23-31); Chloride 100 mmol/L (98-107); Estimated GFR-MDRD 56; Glucose 148 mg/dL (83-110); Potassium 4.5 mmol/L (3.5-5.1); Sodium 137 mmol/L (136-145)
[2019-07-17 05:56] LABS: Band 5 % (5-11); Eosinophils 1 % (0-10); Hemoglobin 15.1 g/dL (14.0-18.0); Lymphocytes 18 % (21-51); MDiff Complete? YES; Mean Corpuscular HGB CONC 31.8 g/dL (32.0-36.0); Mean Corpuscular Hemoglobin 30.2 pg (27.0-31.0); Mean Platelet Volume 8.4 fL (7.4-10.4); Monocytes 12 % (0-10); Neutrophil 64 % (42-75); Platelet Count 199 thou/uL (130-400); RBC Distribution Width 12.4 % (11.5-14.5); Red Blood Cell (RBC) Count 4.99 mill/uL (4.70-6.10); White Blood Cell (WBC) Count 10.5 thou/uL (4.8-10.8)
[2019-07-17] MEDS: Thiamine 100 MG TAB PO SCH (08:12)
[2019-07-17] MEDS: predniSONE 20 MG TAB PO SCH (08:12)
[2019-07-17] MEDS: Multivitamin W/ Minerals 1 TAB PO SCH (08:12)
[2019-07-17] MEDS: Enoxaparin Sodium 120 MG/0.8 ML SYRINGE SC SCH ×2 (08:12→21:55)
[2019-07-17] MEDS ORDERED: Isosorbide Mononitrate (ER) 30 MG TAB PO SCH (09:15)
--- NOTE | 2019-07-17 09:52 | PRG ---
DATE OF SERVICE: 07/17/2019 SUBJECTIVE: Jacob Alvarado is a 73-year-old gentleman this morning is no longer encephalopathic. He has a cough with yellow sputum. OBJECTIVE: VITAL SIGNS: Temperature 97, pulse 84, respiratory rate 20, saturations are 95% on room air, blood pressure 189/94, still on amiodarone drip. CHEST: Decreased breath sounds. No wheezing. CARDIAC: Normal S1 and S2. ABDOMEN: No masses. ASSESSMENT AND PLAN: Bronchitis, supraventricular tachycardia, encephalopathy, azotemia. P.O. antibiotic, doxycycline. Once his amiodarone is switched to p.o., he can be discharged home anytime. Job ID: [id number]
--- NOTE | 2019-07-17 10:52 | PDOC.CPN ---
- Subjective Date: 07/17/19 Time: 10:35 - Objective Allergies/Adverse Reactions: Allergies Allergy/AdvReac Type Severity Reaction Status Date / Time No Known Drug Allergies Allergy Verified 07/10/19 22:43 Visit Medications: Current Medications Acetaminophen (Tylenol) 650 mg PO Q4H PRN PRN Reason: Headache/Fever/Mild Pain (1-3) Last Admin: 07/17/19 01:22 Dose: 650 mg Dextrose/Water (Dextrose 50%) 25 gm SLOW IVP PRN PRN PRN Reason: Hypoglycemia Diphenhydramine HCl (Benadryl) 25 mg PO Q6H PRN PRN Reason: Itching & Insomnia Doxycycline Hyclate (Vibramycin) 100 mg PO BID [facility] Stop: 07/22/19 21:01 Enoxaparin Sodium (Lovenox) 120 mg SC 0900,2100 [facility] Last Admin: 07/17/19 08:12 Dose: 120 mg Glucagon (Glucagon) 1 mg IM PRN PRN PRN Reason: Hypoglycemia Dextrose/Water (D5w) 1,000 mls @ 0 mls/hr IV .Q0M PRN PRN Reason: Hypoglycemia Amiodarone HCl 450 mg/ (Dextrose/Water) 259 mls @ 0 mls/hr IVPB INF LATHA; Protocol Last Admin: 07/16/19 22:49 Dose: 259 mls Diphenhydramine HCl 25 mg/ (Sodium Chloride) 50.5 mls @ 150 mls/hr IVPB Q6H PRN PRN Reason: Nausea Insulin Human Lispro (Humalog) 0 units SC .MODERATE SLIDING SC PRN PRN Reason: Moderate Correctional Scale Last Admin: 07/16/19 18:25 Dose: 2 unit Insulin Human Lispro (Humalog) 0 units SC .BEDTIME SLIDING SC PRN PRN Reason: Bedtime Correctional Scale Last Admin: 07/13/19 21:27 Dose: 2 unit Ipratropium [place] (Atrovent) 2.5 ml NEB [id number] [facility] Last Admin: 07/17/19 07:27 Dose: 2.5 ml Iron/Minerals/Multivitamins (Theragran M) 1 tab PO DAILY LATHA Stop: 07/19/19 09:01 Last Admin: 07/17/19 08:12 Dose: 1 tab Isosorbide Mononitrate (Imdur Er) 30 mg PO NOW LATHA Stop: 07/17/19 11:15 Last Admin: 07/17/19 09:28 Dose: 30 mg Lorazepam (Ativan) 2 mg SLOW IVP Q4H PRN PRN Reason: Anxiety/Agitation Last Admin: 07/15/19 17:10 Dose: 2 mg Melatonin (Melatonin) 3 mg PO HS PRN PRN Reason: Insomnia Last Admin: 07/13/19 20:24 Dose: 3 mg Metoprolol Succinate (Toprol Xl) 100 mg PO BID [facility] Last Admin: 07/17/19 08:12 Dose: 100 mg Metoprolol Tartrate (Lopressor) 5 mg IVP Q6H PRN PRN Reason: SBP over 180 Last Admin: 07/17/19 01:58 Dose: 5 mg Ondansetron HCl (Zofran) 4 mg IVP Q6H PRN PRN Reason: Nausea/Vomiting Prednisone (Prednisone) 20 mg PO QAM-WM [facility] Last Admin: 07/17/19 08:12 Dose: 20 mg Sodium Chloride (Flush - Normal Saline) 10 ml IVF Q12HR [facility] Last Admin: 07/17/19 08:13 Dose: 10 ml Sodium Chloride (Flush - Normal Saline) 10 ml IVF PRN PRN PRN Reason: Saline Flush Last Admin: 07/14/19 05:22 Dose: 10 ml Thiamine HCl (Thiamine) 100 mg PO DAILY [facility] Stop: 07/19/19 09:01 Last Admin: 07/17/19 08:12 Dose: 100 mg Throat Lozenges (Cepastat Lozenges) 1 nighat PO Q2H PRN PRN Reason: Sore Throat Last Admin: 07/17/19 04:13 Dose: 1 nighat Vital Signs & Weight: Vital Signs Temp Pulse Resp BP Pulse Ox 07/17/19 07:14 97.8 F 84 20 189/94 H 95 07/17/19 03:35 97.8 F 51 L 18 156/104 H 92 L 07/17/19 02:01 94 189/96 H 07/17/19 00:27 83 18 93 L Weight 304 lb 10.861 oz - Quality Measures Condition: Atrial Fibrillation/Flutter (hx or current) - Physical Exam HEENT: normocephaly Neck: no JVD/HJR, no bruit Cardiac: regular rate, regular rhythm, other (atrial flutter) Lungs: clear to auscultation Neuro: grossly intact Abdomen: unremarkable Extremities: 1+ LE edema - Labs Result Diagrams: 07/17/19 04:10 07/17/19 04:10 Troponin/CKMB CK-MB (CK-2) 3.1 ng/mL (0-6.6) 07/10/19 17:08 Troponin I 0.132 ng/mL (< 0.028) H 07/10/19 22:54 - Telemetry Supraventricular conduction: atrial flutter - Assessment/Plan Assessment/Plan: 1. New-onset Aflutter with RVR - well controlled HR; On Amiodarone drip and Toprol 100mg BID; Lovenox will be started from tonight for [id number] score 5 (age, HTN, TIA, DM) EP consult pending. 2. Sepsis 2/2 Rt PNA - 3. HTN - stable 4. DM type 2 - 5. Obese - strongly recommend weight management 6. hx of TIA 7. Tobacco abuse - he just quit dipping tobacco about 2 months ago. MAR reviewed * Echo with EF 50-55%, mod-severe LAE, mod MR, mild , and mild-mod TR
--- NOTE | 2019-07-17 11:29 | RAD ---
Exam: Chest one view HISTORY:Congestion. Wheezing. Comparison: 07/14/2009 FINDINGS: Cardiac silhouette:Cardiomegaly. Aorta: Unremarkable Pulmonary vessels: Normal Costophrenic angles: Clear LUNGS: Patchy interstitial opacities with minimal alveolar opacification. Pneumothorax: None Osseous abnormalities: None IMPRESSION: Improving pulmonary vascular congestion.
[2019-07-17] MEDS: HumaLOG 300 UNITS/3 ML VIAL SC PRN ×2 (11:35→19:19)
--- NOTE | 2019-07-17 12:15 | CON ---
DATE OF CONSULTATION: 07/17/2019 REFERRING BAND SAW MARKER: Daphne Hernandez MD REASON FOR CONSULTATION: Typical atrial flutter. HISTORY OF PRESENT ILLNESS: Mr. Alvarado is a pleasant 73-year-old male admitted with pneumonia and sepsis. He developed a metabolic encephalopathy and was treated in the intensive care unit. He was noted to be in typical atrial flutter and has been treated with intravenous amiodarone. His confusion has improved, although not totally clear today. He is oriented to hospital and is aware where he lives. He has no chest discomfort, dyspnea, syncope, or falls. On 07/15/2019, echocardiogram; [id number] dilated left atrium. Moderately dilated right atrium. Ejection fraction 50% to 55%. Moderate mitral regurgitation. [id number] tricuspid regurgitation. PAST MEDICAL HISTORY: 1. Diabetes. 2. Hypertension. 3. TIA. 4. Obesity. PAST SURGICAL HISTORY: None. ALLERGIES: NO KNOWN DRUG ALLERGIES. SOCIAL HISTORY: He is . He lives in [place]. 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 He has several children, who are grown and live nearby. REVIEW OF SYSTEMS: Negative for fever, chills, or orthopnea. Positive for edema, seizures, and syncope. PHYSICAL EXAMINATION: GENERAL: Alert and oriented to person and hospital. Mood and affect normal. VITAL SIGNS: Temperature 97.8, blood pressure 156/104, pulse 90, respiratory rate 12, and oxygen saturation 92% on room air. HEENT: No lesions. Sclerae are clear. SKIN: No lesions. Cardiovascular: Tachycardic, irregularly irregular rhythm. No murmurs, gallops, or rubs. LUNGS: Clear to auscultation bilaterally. Normal respiratory effort. EXTREMITIES: 1+ edema bilaterally. IMAGING DATA: EKG typical atrial flutter. LABORATORY DATA: WBC 10.5, hemoglobin 15.1, and platelets 199. Sodium 137, potassium 4.5, BUN 37, creatinine 1.2, and glucose 148. IMPRESSION: 1. Pneumonia with sepsis. 2. Metabolic encephalopathy with some residual confusion. 3. Typical atrial flutter with [id number] dilated left atrium. No history of atrial fibrillation. 4. Recommend continue subcu Lovenox. 5. Continue amiodarone intravenously. PLAN: Transesophageal echocardiogram and cardioversion versus radiofrequency ablation based on the course of his mental status. We plan to do this prior to his discharge. I will continue to follow. Job ID: [id number]
--- NOTE | 2019-07-17 13:46 | PDOC.HOSPP ---
- Subjective Encounter Date: 07/17/19 Encounter Time: 13:44 Subjective: The patient has mild cough, no significant shortness of breath or chest pain. He states he hasn't walked because he was told he can't without permission . He denies dizziness - Objective Vital Signs & Weight: Vital Signs (12 hours) Temp Pulse Resp BP Pulse Ox 07/17/19 11:31 98.0 F 87 20 152/70 H 95 07/17/19 07:14 97.8 F 84 20 189/94 H 95 07/17/19 03:35 97.8 F 51 L 18 156/104 H 92 L 07/17/19 02:01 94 189/96 H Weight Weight 304 lb 10.861 oz Most Recent Monitor Data Heart Rate from ECG 93 NIBP 108/65 NIBP BP-Mean 79 Respiration from ECG 17 SpO2 93 I&O: 07/16/19 07/17/19 07/18/19 06:59 06:59 06:59 Intake Total 2953 2222.4 Output Total 750 2670 Balance 2203 -447.6 Result Diagrams: 07/17/19 04:10 07/17/19 04:10 Additional Labs: Accuchecks 07/17/19 07/17/19 07/16/19 10:54 05:36 20:34 POC Glucose 220 H 147 H 149 H 07/16/19 07/16/19 16:52 10:53 POC Glucose 173 H 159 H Hospitalist ROS - Review of Systems Constitutional: denies: fever, chills - Medication Medications: Active Medications Generic Name Dose Route Start Last Admin Trade Name Freq PRN Reason Stop Dose Admin Acetaminophen 650 mg 07/10/19 19:04 07/17/19 01:22 Tylenol PO 650 mg Q4H PRN Administration Headache/Fever/Mild Pain (1-3) Enoxaparin Sodium 120 mg 07/16/19 21:00 07/17/19 08:12 Lovenox SC 120 mg 0900,2100 LATHA Administration Amiodarone HCl 450 mg/ 259 mls @ 0 mls/hr 07/13/19 11:45 07/16/19 22:49 Dextrose/Water IVPB 259 mls INF LATHA Administration Protocol Per Protocol Insulin Human Lispro 0 units 07/10/19 19:06 07/17/19 11:35 Humalog SC 4 unit .MODERATE SLIDING SC PRN Administration Moderate Correctional Scale Insulin Human Lispro 0 units 07/12/19 21:14 07/13/19 21:27 Humalog SC 2 unit .BEDTIME SLIDING SC PRN Administration Bedtime Correctional Scale Ipratropium [place] 2.5 ml 07/13/19 13:00 07/17/19 07:27 Atrovent NEB 2.5 ml [id number] LATHA Administration Iron/Minerals/Multivitamins 1 tab 07/16/19 09:00 07/17/19 08:12 Theragran M PO 07/19/19 09:01 1 tab DAILY LATHA Administration Lorazepam 2 mg 07/15/19 15:48 07/15/19 17:10 Ativan SLOW IVP 2 mg Q4H PRN Administration Anxiety/Agitation Melatonin 3 mg 07/12/19 23:27 07/13/19 20:24 Melatonin PO 3 mg HS PRN Administration Insomnia Metoprolol Succinate 100 mg 07/13/19 21:00 07/17/19 08:12 Toprol Xl PO 100 mg BID LATHA Administration Metoprolol Tartrate 5 mg 07/17/19 01:29 07/17/19 01:58 Lopressor IVP 5 mg Q6H PRN Administration SBP over 180 Prednisone 20 mg 07/14/19 08:00 07/17/19 08:12 Prednisone PO 20 mg QAM-WM LATHA Administration Sodium Chloride 10 ml 07/10/19 21:00 07/17/19 08:13 Flush - Normal Saline IVF 10 ml Q12HR LATHA Administration Sodium Chloride 10 ml 07/10/19 19:33 07/14/19 05:22 Flush - Normal Saline IVF 10 ml PRN PRN Administration Saline Flush Thiamine HCl 100 mg 07/16/19 09:00 07/17/19 08:12 Thiamine PO 07/19/19 09:01 100 mg DAILY LATHA Administration Throat Lozenges 1 nighat 07/17/19 03:46 07/17/19 04:13 Cepastat Lozenges PO 1 nighat Q2H PRN Administration Sore Throat - Exam General Appearance: NAD, awake alert Eye: PERRL, anicteric sclera ENT: normocephalic atraumatic, no oropharyngeal lesions Neck: supple, symmetric, no JVD Heart: RRR, no murmur, no gallops, no rubs Respiratory: CTAB, no wheezes, no rales, no ronchi Gastrointestinal: soft, non-tender, non-distended, normal bowel sounds Extremities: no cyanosis, no clubbing, no edema Skin: normal turgor, no lesions, no rashes Neurological: normal sensation to touch, no focal deficits, no new deficit Musculoskeletal: normal tone, normal strength, no muscle wasting Psychiatric: normal affect, normal behavior, A&O x 3, oriented to person Hosp A/P - Plan CT brain: no acute process Chest X ray 07/14: moderate cardiomegaly, worsening bilateral opacities vs edema ECHO: EF 50-55%, moderate MR, moderate TR This is a 73 year old male who presented with pneumonia, transferred to CCU For agitation and encephalopathy Acute encephalopathy - unclear etiology. Precedex drip off. Could have been from alcohol withdrawal vs sleep deprivation - continue thiamine and folic acid Acute hypoxic respiratory failure secondary to pneumonia vs pulm congestion - patient on room air - continue ceftriaxone day 09/25. Doxycycline to finish today as well - repeat X ray shows improving pulmonary vascular congestion - troponin increased to .132, repeat trop in am Aflutter - was on amiodarone drip. - EP was consulted, plan for JUNIOR vs RFA - ECHO shows no sign of ischemia - started on empiric anticoagulation Anemia - HB 11, MCV 98, B12 folate normal Dispo: pending weaning off of amiodarone drip
[2019-07-17] MEDS: Amiodarone 450 MG in Dextrose 5% in Water 250 ML IVPB SCH (15:45)
[2019-07-17] MEDS ORDERED: Amiodarone 200 MG TAB PO SCH (21:00)
[2019-07-17] MEDS: Doxycycline 100 MG CAP PO SCH (21:54)
[2019-07-18] MEDS: Ipratropium Bromide 2.5 ml Neb NEB SCH ×4 (01:54→18:40)
[2019-07-18 04:40] LABS: Hemoglobin 14.7 g/dL (14.0-18.0); Lymphocytes 22 % (21-51); MDiff Complete? YES; Mean Corpuscular HGB CONC 33.1 g/dL (32.0-36.0); Mean Corpuscular Hemoglobin 31.2 pg (27.0-31.0); Mean Corpuscular Volume 94.2 fL (78.0-98.0); Mean Platelet Volume 8.1 fL (7.4-10.4); Monocytes 9 % (0-10); Neutrophil 69 % (42-75); Platelet Count 181 thou/uL (130-400); RBC Distribution Width 12.4 % (11.5-14.5); Red Blood Cell (RBC) Count 4.72 mill/uL (4.70-6.10); White Blood Cell (WBC) Count 10.6 thou/uL (4.8-10.8)
[2019-07-18 05:33] LABS: Anion Gap 14 mmol/L (10-20); BUN (Urea Nitrogen) 23 mg/dL (8.4-25.7); Calc. Creatinine Clearance 139 mL/min (70-130); Carbon Dioxide 24 mmol/L (23-31); Chloride 102 mmol/L (98-107); Estimated GFR-MDRD 80; Glucose 140 mg/dL (83-110); Potassium 4.1 mmol/L (3.5-5.1); Sodium 136 mmol/L (136-145)
[2019-07-18] MEDS: Amiodarone 450 MG in Dextrose 5% in Water 250 ML IVPB SCH (08:32)
[2019-07-18] MEDS: Enoxaparin Sodium 120 MG/0.8 ML SYRINGE SC SCH ×2 (08:33→21:24)
[2019-07-18] MEDS: Thiamine 100 MG TAB PO SCH (08:33)
[2019-07-18] MEDS: Multivitamin W/ Minerals 1 TAB PO SCH (08:33)
[2019-07-18] MEDS: predniSONE 20 MG TAB PO SCH (08:34)
[2019-07-18] MEDS: Doxycycline 100 MG CAP PO SCH ×2 (08:34→21:24)
--- NOTE | 2019-07-18 09:50 | PRG ---
DATE OF SERVICE: 07/18/2019 SUBJECTIVE: This morning, awake and responsive. No longer encephalopathic. OBJECTIVE: VITAL SIGNS: Temperature 98, pulse 95, respiratory rate 18, saturations 95%, and blood pressure 160/84. CHEST: Decreased breath sounds. No wheezing or crackles. CARDIAC: Normal S1 and S2. ABDOMEN: No masses. ASSESSMENT: Supraventricular tachycardia, respiratory failure, encephalopathy, and pneumonia. PLAN: EP is seeing the patient. Definitive treatment in the next several days. Job ID: [id number]
--- NOTE | 2019-07-18 10:51 | PDOC.CPN ---
- Subjective Date: 07/18/19 Time: 10:55 Interval history: The pt seen and examined. No overnight events. No cardiac complaints. - Objective Allergies/Adverse Reactions: Allergies Allergy/AdvReac Type Severity Reaction Status Date / Time No Known Drug Allergies Allergy Verified 07/10/19 22:43 Visit Medications: Current Medications Acetaminophen (Tylenol) 650 mg PO Q4H PRN PRN Reason: Headache/Fever/Mild Pain (1-3) Last Admin: 07/17/19 01:22 Dose: 650 mg Dextrose/Water (Dextrose 50%) 25 gm SLOW IVP PRN PRN PRN Reason: Hypoglycemia Diphenhydramine HCl (Benadryl) 25 mg PO Q6H PRN PRN Reason: Itching & Insomnia Doxycycline Hyclate (Vibramycin) 100 mg PO BID [facility] Stop: 07/22/19 21:01 Last Admin: 07/18/19 08:34 Dose: 100 mg Enoxaparin Sodium (Lovenox) 120 mg SC 0900,2100 LATHA Last Admin: 07/18/19 08:33 Dose: 120 mg Glucagon (Glucagon) 1 mg IM PRN PRN PRN Reason: Hypoglycemia Dextrose/Water (D5w) 1,000 mls @ 0 mls/hr IV .Q0M PRN PRN Reason: Hypoglycemia Amiodarone HCl 450 mg/ (Dextrose/Water) 259 mls @ 0 mls/hr IVPB INF LATHA; Protocol Last Admin: 07/18/19 08:32 Dose: 259 mls Diphenhydramine HCl 25 mg/ (Sodium Chloride) 50.5 mls @ 150 mls/hr IVPB Q6H PRN PRN Reason: Nausea Insulin Human Lispro (Humalog) 0 units SC .MODERATE SLIDING SC PRN PRN Reason: Moderate Correctional Scale Last Admin: 07/17/19 19:19 Dose: 2 unit Insulin Human Lispro (Humalog) 0 units SC .BEDTIME SLIDING SC PRN PRN Reason: Bedtime Correctional Scale Last Admin: 07/13/19 21:27 Dose: 2 unit Ipratropium [place] (Atrovent) 2.5 ml NEB [id number] LATHA Last Admin: 07/18/19 06:53 Dose: 2.5 ml Iron/Minerals/Multivitamins (Theragran M) 1 tab PO DAILY [facility] Stop: 07/19/19 09:01 Last Admin: 07/18/19 08:33 Dose: 1 tab Lorazepam (Ativan) 2 mg SLOW IVP Q4H PRN PRN Reason: Anxiety/Agitation Last Admin: 07/15/19 17:10 Dose: 2 mg Melatonin (Melatonin) 3 mg PO HS PRN PRN Reason: Insomnia Last Admin: 07/13/19 20:24 Dose: 3 mg Metoprolol Succinate (Toprol Xl) 100 mg PO BID [facility] Last Admin: 07/18/19 08:33 Dose: 100 mg Metoprolol Tartrate (Lopressor) 5 mg IVP Q6H PRN PRN Reason: SBP over 180 Last Admin: 07/17/19 01:58 Dose: 5 mg Ondansetron HCl (Zofran) 4 mg IVP Q6H PRN PRN Reason: Nausea/Vomiting Prednisone (Prednisone) 20 mg PO QAM-WM [facility] Last Admin: 07/18/19 08:34 Dose: 20 mg Sodium Chloride (Flush - Normal Saline) 10 ml IVF Q12HR [facility] Last Admin: 07/18/19 08:34 Dose: 10 ml Sodium Chloride (Flush - Normal Saline) 10 ml IVF PRN PRN PRN Reason: Saline Flush Last Admin: 07/14/19 05:22 Dose: 10 ml Thiamine HCl (Thiamine) 100 mg PO DAILY [facility] Stop: 07/19/19 09:01 Last Admin: 07/18/19 08:33 Dose: 100 mg Throat Lozenges (Cepastat Lozenges) 1 nighat PO Q2H PRN PRN Reason: Sore Throat Last Admin: 07/17/19 04:13 Dose: 1 nighat Vital Signs & Weight: Vital Signs Temp Pulse Resp BP BP Pulse Ox 07/18/19 07:45 98.4 F 95 18 160/84 H 97 07/18/19 06:53 95 16 07/18/19 05:10 98.2 F 107 H 17 172/83 H 96 07/18/19 01:54 58 L 16 96 07/18/19 00:44 90 161/72 H 07/18/19 00:36 95 Weight 305 lb 8.971 oz - Quality Measures Condition: Atrial Fibrillation/Flutter (hx or current) - Physical Exam General: alert & oriented x3 HEENT: mucus membranes moist Neck: supple neck Cardiac: regular rate and rhythm, S1/S2 Lungs: clear to auscultation, decreased breath sounds - Labs Result Diagrams: 07/18/19 04:02 07/18/19 04:02 Troponin/CKMB CK-MB (CK-2) 3.1 ng/mL (0-6.6) 07/10/19 17:08 Troponin I 0.132 ng/mL (< 0.028) H 07/10/19 22:54 - Telemetry Supraventricular conduction: atrial flutter - Assessment/Plan Assessment/Plan: 1. New-onset Aflutter with RVR - well controlled HR On Amiodarone , Toprol 100mg BID, and Lovenox BID ([id number] score 5 (age, HTN, TIA, DM)); plan for JUNIOR/DCCV in a few day by Dr Phelps (appreciate Dr Phelps's input!) 2. Sepsis 2/2 Rt PNA - on ABX; managed by PCP 3. HTN - will start Losartan 50mg qd from today 4. DM type 2 - 5. Mod MR 6. Obese - strongly recommend weight management 7. hx of TIA 8. Tobacco abuse - he just quit dipping tobacco about 2 months ago. MAR reviewed * Echo with EF 50-55%, mod-severe LAE, mod MR, mild , and mild-mod TR Pt. seen and eval. by me. I agree with the A/P by the [employer]. I had a discussion with the pt. and he agrees to proceed with JUNIOR/Cardioversion. I will schedule for tomorrow and hopefully he will not change his mind in the interim. Continue amiodarone. He may still need an ablation for the flutter as it is often difficult to control with medications. Chest clear. Regular rhythm. Monitor indicates atrial flutter. [email or web address]
[2019-07-18] MEDS ORDERED: Losartan 25 MG TAB PO SCH (11:00)
[2019-07-18] MEDS: HumaLOG 300 UNITS/3 ML VIAL SC PRN (11:48)
[2019-07-18] MEDS ORDERED: Amiodarone 200 MG TAB PO SCH (12:30)
--- NOTE | 2019-07-18 14:14 | ULT ---
EXAM: Bilateral upper extremity venous ultrasound HISTORY: Arm swelling. COMPARISON: None TECHNIQUE: Multiplanar grayscale and color Doppler images were obtained in a bilateral lower extremit y venous ultrasound. Spectral analysis of the Doppler waveforms were performed. FINDINGS: Flow in bilateral internal jugular veins and subclavian veins. Flow and compressibility in bilateral axillary veins, brachial veins, basilic veins, ulnar veins, radial veins and cephalic veins.. IMPRESSION: No evidence of DVT in the left or right upper extremity.
--- NOTE | 2019-07-18 14:18 | PDOC.EP ---
- Subjective Date: 07/18/19 Time: 14:15 Interval History: Confused earlier today. He was planning to leave. He is oriented now and pleasant. - Objective Allergies/Adverse Reactions: Allergies Allergy/AdvReac Type Severity Reaction Status Date / Time No Known Drug Allergies Allergy Verified 07/10/19 22:43 Current Medications Acetaminophen (Tylenol) 650 mg PO Q4H PRN PRN Reason: Headache/Fever/Mild Pain (1-3) Last Admin: 07/17/19 01:22 Dose: 650 mg Amiodarone HCl (Cordarone) 400 mg PO BID [facility] Amiodarone HCl (Cordarone) 400 mg PO NOW [facility] Stop: 07/18/19 14:30 Last Admin: 07/18/19 12:49 Dose: 400 mg Dextrose/Water (Dextrose 50%) 25 gm SLOW IVP PRN PRN PRN Reason: Hypoglycemia Diphenhydramine HCl (Benadryl) 25 mg PO Q6H PRN PRN Reason: Itching & Insomnia Doxycycline Hyclate (Vibramycin) 100 mg PO BID [facility] Stop: 07/22/19 21:01 Last Admin: 07/18/19 08:34 Dose: 100 mg Enoxaparin Sodium (Lovenox) 120 mg SC 0900,2100 [facility] Last Admin: 07/18/19 08:33 Dose: 120 mg Glucagon (Glucagon) 1 mg IM PRN PRN PRN Reason: Hypoglycemia Dextrose/Water (D5w) 1,000 mls @ 0 mls/hr IV .Q0M PRN PRN Reason: Hypoglycemia Diphenhydramine HCl 25 mg/ (Sodium Chloride) 50.5 mls @ 150 mls/hr IVPB Q6H PRN PRN Reason: Nausea Insulin Human Lispro (Humalog) 0 units SC .MODERATE SLIDING SC PRN PRN Reason: Moderate Correctional Scale Last Admin: 07/18/19 11:48 Dose: 2 unit Insulin Human Lispro (Humalog) 0 units SC .BEDTIME SLIDING SC PRN PRN Reason: Bedtime Correctional Scale Last Admin: 07/13/19 21:27 Dose: 2 unit Ipratropium [place] (Atrovent) 2.5 ml NEB [id number] [facility] Last Admin: 07/18/19 13:21 Dose: Not Given Iron/Minerals/Multivitamins (Theragran M) 1 tab PO DAILY [facility] Stop: 07/19/19 09:01 Last Admin: 07/18/19 08:33 Dose: 1 tab Lorazepam (Ativan) 2 mg SLOW IVP Q4H PRN PRN Reason: Anxiety/Agitation Last Admin: 07/15/19 17:10 Dose: 2 mg Losartan Potassium (Cozaar) 50 mg PO DAILY [facility] Melatonin (Melatonin) 3 mg PO HS PRN PRN Reason: Insomnia Last Admin: 07/13/19 20:24 Dose: 3 mg Metoprolol Succinate (Toprol Xl) 100 mg PO BID [facility] Last Admin: 07/18/19 08:33 Dose: 100 mg Metoprolol Tartrate (Lopressor) 5 mg IVP Q6H PRN PRN Reason: SBP over 180 Last Admin: 07/17/19 01:58 Dose: 5 mg Ondansetron HCl (Zofran) 4 mg IVP Q6H PRN PRN Reason: Nausea/Vomiting Prednisone (Prednisone) 20 mg PO QAM-WM [facility] Last Admin: 07/18/19 08:34 Dose: 20 mg Sodium Chloride (Flush - Normal Saline) 10 ml IVF Q12HR [facility] Last Admin: 07/18/19 08:34 Dose: 10 ml Sodium Chloride (Flush - Normal Saline) 10 ml IVF PRN PRN PRN Reason: Saline Flush Last Admin: 07/14/19 05:22 Dose: 10 ml Thiamine HCl (Thiamine) 100 mg PO DAILY [facility] Stop: 07/19/19 09:01 Last Admin: 07/18/19 08:33 Dose: 100 mg Throat Lozenges (Cepastat Lozenges) 1 nighat PO Q2H PRN PRN Reason: Sore Throat Last Admin: 07/17/19 04:13 Dose: 1 nighat Vital Signs & Weight: Vital Signs Temp Pulse Resp BP Pulse Ox 07/18/19 11:37 97.6 F 95 18 138/90 97 07/18/19 07:45 98.4 F 95 18 160/84 H 97 07/18/19 06:53 95 16 07/18/19 05:10 98.2 F 107 H 17 172/83 H 96 Weight 305 lb 8.971 oz I/O: I/O 07/17/19 07/18/19 07/19/19 06:59 06:59 06:59 Intake Total 2222.4 1620.4 Output Total 2670 1725 Balance -447.6 -104.6 - Labs Result Diagrams: 07/18/19 04:02 07/18/19 04:02 - Assessment/Plan Assessment/Plan: Typical atrial flutter - Rate controlled Metabolic encephalopathy - Slowly improving Pneumonia/Sepsis - Resolved Plan JUNIOR and ablation later this week depending on mental status Continue Lovenox, amiodaone PO, and metoprolol
--- NOTE | 2019-07-18 15:41 | PDOC.HOSPP ---
- Subjective Encounter Date: 07/18/19 Encounter Time: 12:00 Subjective: CC: palpitations The patient denies chest pain or palpitations. He stated that he wanted to go home and leave AMA. He also stated he was going to call his dobie man. He states he doesn't understand why he is being kept here. He reported that he did not want to be shocked and wanted to be a DNR/DNI Patient was aware he was in the hospital and aware that he was confused in the ICU and required medications to keep him sedated for agitation. He stated he just hadn't gotten enough sleep. Patient denies significant alcohol intake and states he "barely drinks". Per nursing patient was seen by Dr. Phelps later and changed his mind again and requested to be full code - Objective Vital Signs & Weight: Vital Signs (12 hours) Temp Pulse Resp BP Pulse Ox 07/18/19 11:37 97.6 F 95 18 138/90 97 07/18/19 07:45 98.4 F 95 18 160/84 H 97 07/18/19 06:53 95 16 07/18/19 05:10 98.2 F 107 H 17 172/83 H 96 Weight Weight 305 lb 8.971 oz Most Recent Monitor Data Heart Rate from ECG 93 NIBP 108/65 NIBP BP-Mean 79 Respiration from ECG 17 SpO2 93 I&O: 07/17/19 07/18/19 07/19/19 06:59 06:59 06:59 Intake Total 2222.4 1620.4 Output Total 2670 1725 Balance -447.6 -104.6 Result Diagrams: 07/18/19 04:02 07/18/19 04:02 Additional Labs: Accuchecks 07/18/19 07/18/19 07/17/19 11:12 05:55 20:21 POC Glucose 167 H 130 H 168 H 07/17/19 16:42 POC Glucose 172 H Hospitalist ROS - Review of Systems Constitutional: denies: fever, chills - Medication Medications: Active Medications Generic Name Dose Route Start Last Admin Trade Name Freq PRN Reason Stop Dose Admin Acetaminophen 650 mg 07/10/19 19:04 07/17/19 01:22 Tylenol PO 650 mg Q4H PRN Administration Headache/Fever/Mild Pain (1-3) Doxycycline Hyclate 100 mg 07/17/19 21:00 07/18/19 08:34 Vibramycin PO 07/22/19 21:01 100 mg BID LATHA Administration Enoxaparin Sodium 120 mg 07/16/19 21:00 07/18/19 08:33 Lovenox SC 120 mg 0900,2100 LATHA Administration Insulin Human Lispro 0 units 07/10/19 19:06 07/18/19 11:48 Humalog SC 2 unit .MODERATE SLIDING SC PRN Administration Moderate Correctional Scale Insulin Human Lispro 0 units 07/12/19 21:14 07/13/19 21:27 Humalog SC 2 unit .BEDTIME SLIDING SC PRN Administration Bedtime Correctional Scale Ipratropium [place] 2.5 ml 07/13/19 13:00 07/18/19 13:21 Atrovent NEB Not Given [id number] [facility]HA Iron/Minerals/Multivitamins 1 tab 07/16/19 09:00 07/18/19 08:33 Theragran M PO 07/19/19 09:01 1 tab DAILY [facility]HA Administration Lorazepam 2 mg 07/15/19 15:48 07/15/19 17:10 Ativan SLOW IVP 2 mg Q4H PRN Administration Anxiety/Agitation Melatonin 3 mg 07/12/19 23:27 07/13/19 20:24 Melatonin PO 3 mg HS PRN Administration Insomnia Metoprolol Succinate 100 mg 07/13/19 21:00 07/18/19 08:33 Toprol Xl PO 100 mg BID LATHA Administration Metoprolol Tartrate 5 mg 07/17/19 01:29 07/17/19 01:58 Lopressor IVP 5 mg Q6H PRN Administration SBP over 180 Prednisone 20 mg 07/14/19 08:00 07/18/19 08:34 Prednisone PO 20 mg QAM-WM LATHA Administration Sodium Chloride 10 ml 07/10/19 21:00 07/18/19 08:34 Flush - Normal Saline IVF 10 ml Q12HR [facility]HA Administration Sodium Chloride 10 ml 07/10/19 19:33 07/14/19 05:22 Flush - Normal Saline IVF 10 ml PRN PRN Administration Saline Flush Thiamine HCl 100 mg 07/16/19 09:00 07/18/19 08:33 Thiamine PO 07/19/19 09:01 100 mg DAILY [facility]HA Administration Throat Lozenges 1 nighat 07/17/19 03:46 07/17/19 04:13 Cepastat Lozenges PO 1 nighat Q2H PRN Administration Sore Throat - Exam General Appearance: NAD, awake alert General - other findings: obese Eye: PERRL, anicteric sclera ENT: normocephalic atraumatic, no oropharyngeal lesions Neck: no JVD Heart: RRR, no murmur, no gallops, no rubs Respiratory: CTAB, no wheezes, no rales, no ronchi Gastrointestinal: soft, non-tender, non-distended, normal bowel sounds Extremities: no cyanosis, no clubbing, no edema Extremities - other findings: upper extremity edema 3+ Skin: normal turgor, no lesions, no rashes Neurological: cranial nerve grossly intact, normal sensation to touch, no focal deficits, no new deficit Musculoskeletal: normal tone, normal strength, no muscle wasting Psychiatric: normal affect, normal behavior, A&O x 3, oriented to person Hosp A/P - Plan CT brain: no acute process Chest X ray 07/14: moderate cardiomegaly, worsening bilateral opacities vs edema ECHO: EF 50-55%, moderate MR, moderate TR Chest X ray 07/16: improving pulmonary vascular congestion VEnous doppler 07/17: no DVT This is a 73 year old male who presented with pneumonia, transferred to CCU For agitation and encephalopathy Aflutter - was on amiodarone drip. Patient requested IV to be discontinued due to arm swelling. Transitioned amiodarone to 400 mg po bid - EP is following. Plan was for JUNIOR, patient refused earlier today and is now okay with this - ECHO shows no sign of ischemia - continue therapeutic lovenox Bilateral UE swelling - dopplers showed no evidence of DVT Acute hypoxic respiratory failure secondary to pneumonia vs pulm edema - repeat chest X ray 07/16 shows improving pulmonary vascular congestion - completed ceftriaxone and doxycycline 7 days for pneumonia - repeat troponin pending Encephalopathy - improving - is intermittently delirious - will check UA - will repeat TSH, last one was normal - continue thiamine and folic acid supplementation since he improved with this in the ICU Anemia - resolved Dispo: pending JUNIOR for atrial flutter
[2019-07-18 16:44] LABS: CKMB 4.7 ng/mL (0-6.6)
[2019-07-18] MEDS: Amiodarone 200 MG TAB PO SCH (21:24)
[2019-07-19 00:02] LABS: Bilirubin Negative (Negative); Blood, Urine Negative (Negative); Clarity Clear (Clear); Glucose, Urine (Dipstick) Normal (Negative); Leukocyte Negative Leu/uL (Negative); Nitrite Negative (Negative); Protein, Urine (Dipstick) Negative (Neg-Trace)
[2019-07-19] MEDS: Ipratropium Bromide 2.5 ml Neb NEB SCH ×3 (00:45→13:11)
[2019-07-19 04:49] LABS: Hemoglobin 14.4 g/dL (14.0-18.0); Mean Corpuscular HGB CONC 32.7 g/dL (32.0-36.0); Mean Corpuscular Hemoglobin 30.7 pg (27.0-31.0); Mean Corpuscular Volume 93.8 fL (78.0-98.0); Mean Platelet Volume 8.2 fL (7.4-10.4); Platelet Count 148 thou/uL (130-400); RBC Distribution Width 12.7 % (11.5-14.5); White Blood Cell (WBC) Count 8.9 thou/uL (4.8-10.8)
[2019-07-19 05:10] LABS: Anion Gap 9 mmol/L (10-20); BUN (Urea Nitrogen) 19 mg/dL (8.4-25.7); Calc. Creatinine Clearance 123 mL/min (70-130); Calcium 8.9 mg/dL (7.8-10.44); Carbon Dioxide 30 mmol/L (23-31); Chloride 100 mmol/L (98-107); Estimated GFR-MDRD 69; Glucose 139 mg/dL (83-110); Potassium 4.4 mmol/L (3.5-5.1); Sodium 135 mmol/L (136-145)
[2019-07-19] MEDS: Doxycycline 100 MG CAP PO SCH (08:45)
[2019-07-19] MEDS: Thiamine 100 MG TAB PO SCH (08:45)
[2019-07-19] MEDS: Amiodarone 200 MG TAB PO SCH (08:45)
[2019-07-19] MEDS: Multivitamin W/ Minerals 1 TAB PO SCH (08:46)
[2019-07-19] MEDS: Enoxaparin Sodium 120 MG/0.8 ML SYRINGE SC SCH (08:46)
[2019-07-19] MEDS: predniSONE 20 MG TAB PO SCH (08:46)
[2019-07-19] MEDS ORDERED: Losartan 25 MG TAB PO SCH (09:00)
[2019-07-19] MEDS: predniSONE 5 MG TAB PO SCH ×2 (09:28→09:29)
--- NOTE | 2019-07-19 09:49 | PRG ---
DATE OF SERVICE: 07/19/2019 SUBJECTIVE: This morning, he is doing better. He is still coughing some yellow sputum, but no longer encephalopathic. OBJECTIVE: VITAL SIGNS: Temperature 98, saturations 100%, blood pressure 158/82, pulse 16. CHEST: No wheezing, no crackles. CARDIAC: Normal S1 and S2, no gallops. ABDOMEN: No masses. LABORATORY DATA: Unremarkable. IMPRESSION: Supraventricular tachycardia, encephalopathy, morbid obesity, bronchitis, pneumonia. Disposition as per Cardiology. Pulmonary gibson, he is on oral antibiotics. Home any time. Job ID: [id number]
[2019-07-19] MEDS ORDERED: Propofol 500 MG/50 ML VIAL ONE (10:46)
[2019-07-19] MEDS ORDERED: Labetalol HCl 100 MG/20 ML VIAL ONE (11:06)
[2019-07-19] MEDS ORDERED: PROPOFOL 200 MG/20 ML VIAL ONE (11:16)
[2019-07-19] MEDS ORDERED: PROPOFOL 0 ML ONE (11:18)
--- NOTE | 2019-07-19 11:42 | PDOC.CPN ---
- Subjective Date: 07/19/19 Time: 11:00 - Review of Systems General: reports: fever/chills Respiratory: reports: congestion, shortness of breath Cardiovascular: reports: chest pain, edema, orthopnea Gastrointestinal: reports: nausea, vomiting Musculoskeletal: reports: pain, swelling Neurological: reports: weakness - Objective Allergies/Adverse Reactions: Allergies Allergy/AdvReac Type Severity Reaction Status Date / Time No Known Drug Allergies Allergy Verified 07/10/19 22:43 Visit Medications: Current Medications Acetaminophen (Tylenol) 650 mg PO Q4H PRN PRN Reason: Headache/Fever/Mild Pain (1-3) Last Admin: 07/17/19 01:22 Dose: 650 mg Amiodarone HCl (Cordarone) 400 mg PO BID [facility] Last Admin: 07/19/19 08:45 Dose: 400 mg Apixaban (Eliquis) 5 mg PO BID [facility] Dextrose/Water (Dextrose 50%) 25 gm SLOW IVP PRN PRN PRN Reason: Hypoglycemia Diphenhydramine HCl (Benadryl) 25 mg PO Q6H PRN PRN Reason: Itching & Insomnia Doxycycline Hyclate (Vibramycin) 100 mg PO BID [facility] Stop: 07/22/19 21:01 Last Admin: 07/19/19 08:45 Dose: 100 mg Glucagon (Glucagon) 1 mg IM PRN PRN PRN Reason: Hypoglycemia Dextrose/Water (D5w) 1,000 mls @ 0 mls/hr IV .Q0M PRN PRN Reason: Hypoglycemia Diphenhydramine HCl 25 mg/ (Sodium Chloride) 50.5 mls @ 150 mls/hr IVPB Q6H PRN PRN Reason: Nausea Insulin Human Lispro (Humalog) 0 units SC .MODERATE SLIDING SC PRN PRN Reason: Moderate Correctional Scale Last Admin: 07/18/19 11:48 Dose: 2 unit Insulin Human Lispro (Humalog) 0 units SC .BEDTIME SLIDING SC PRN PRN Reason: Bedtime Correctional Scale Last Admin: 07/13/19 21:27 Dose: 2 unit Ipratropium [place] (Atrovent) 2.5 ml NEB [id number] [facility] Last Admin: 07/19/19 07:17 Dose: 2.5 ml Lorazepam (Ativan) 2 mg SLOW IVP Q4H PRN PRN Reason: Anxiety/Agitation Last Admin: 07/15/19 17:10 Dose: 2 mg Losartan Potassium (Cozaar) 50 mg PO DAILY [facility] Last Admin: 07/19/19 08:45 Dose: 50 mg Melatonin (Melatonin) 3 mg PO HS PRN PRN Reason: Insomnia Last Admin: 07/13/19 20:24 Dose: 3 mg Metoprolol Succinate (Toprol Xl) 100 mg PO BID [facility] Last Admin: 07/19/19 08:46 Dose: 100 mg Metoprolol Tartrate (Lopressor) 5 mg IVP Q6H PRN PRN Reason: SBP over 180 Last Admin: 07/17/19 01:58 Dose: 5 mg Ondansetron HCl (Zofran) 4 mg IVP Q6H PRN PRN Reason: Nausea/Vomiting Sodium Chloride (Flush - Normal Saline) 10 ml IVF Q12HR [facility] Last Admin: 07/19/19 08:46 Dose: 10 ml Sodium Chloride (Flush - Normal Saline) 10 ml IVF PRN PRN PRN Reason: Saline Flush Last Admin: 07/14/19 05:22 Dose: 10 ml Throat Lozenges (Cepastat Lozenges) 1 nighat PO Q2H PRN PRN Reason: Sore Throat Last Admin: 07/17/19 04:13 Dose: 1 nighat Vital Signs & Weight: Vital Signs Temp Pulse Resp BP Pulse Ox 07/19/19 07:28 98.6 F 100 16 158/82 H 98 07/19/19 07:17 101 H 18 97 07/19/19 06:09 170/133 H 07/19/19 03:38 98.2 F 113 H 18 185/81 H 94 L Weight 305 lb 14.4 oz - Quality Measures Condition: Atrial Fibrillation/Flutter (hx or current) CV meds: Beta Roberto: Yes - Physical Exam HEENT: normocephaly Neck: no JVD/HJR Cardiac: regular rate Lungs: clear to auscultation Neuro: grossly intact Abdomen: unremarkable Extremities: no cyanosis, no clubbing, no edema Musculoskeletal: normal range of motion - Labs Result Diagrams: 07/19/19 04:18 07/19/19 04:18 Troponin/CKMB CK-MB (CK-2) 4.7 ng/mL (0-6.6) 07/18/19 15:52 Troponin I 0.212 ng/mL (< 0.028) H 07/18/19 15:52 - Telemetry Supraventricular conduction: atrial flutter - Assessment/Plan Assessment/Plan: 1. New-onset Aflutter with RVR - well controlled HR On Amiodarone , Toprol 100mg BID, and Lovenox BID ([id number] score 5 (age, HTN, TIA, DM)); plan for JUNIOR/DCCV today 2. Sepsis 2/2 Rt PNA - on ABX; managed by PCP 3. HTN - will start Losartan 50mg qd from today 4. DM type 2 - 5. Mod MR 6. Obese - strongly recommend weight management 7. hx of TIA 8. Tobacco abuse - he just quit dipping tobacco about 2 months ago. MAR reviewed Successful cardioversion of his atrial flutter. Continue amiodarone. Stop lovenox, start Eliquis. Home later today or tomorrow from a cardiac standpoint. F/U in 2-4 weeks. [email or web address]
[2019-07-19] MEDS ORDERED: Apixaban 5 MG TAB PO SCH ×2 (12:00→21:00)
[2019-07-19 12:29] VITALS: BP 166/77; TEMP 97.7
--- NOTE | 2019-07-19 12:51 | EKG ---
Test Reason : POST CARDIOVERSION Blood Pressure : / mmHG Vent. Rate : 069 BPM Atrial Rate : 069 BPM P-R Int : 162 ms QRS Dur : 106 ms QT Int : 444 ms P-R-T Axes : 068 -46 001 degrees QTc Int : 475 ms Normal sinus rhythm Left anterior fascicular block Abnormal ECG When compared with ECG of 14-JUL-2019 12:45, Sinus rhythm has replaced Atrial flutter ST less depressed in Inferior leads T wave inversion less evident in Inferior leads Confirmed by DR. Laz NAVARRO ([id number]) on 07/19/2019 12:51:35 PM Referred By: COURTNEY Confirmed By:DR. Laz NAVARRO
[2019-07-19 13:27] VITALS: BMI 42.6
--- NOTE | 2019-07-19 20:56 | DIS ---
DATE OF ADMISSION: 07/11/2019 DATE OF DISCHARGE: 07/19/2019 DISCHARGE DIAGNOSES: 1. New onset atrial flutter with rapid ventricular response. 2. Sepsis and acute hypoxic respiratory failure secondary to right-sided pneumonia. 3. Hypertensive urgency. 4. Moderate mitral regurgitation. 5. Morbid obesity. 6. Acute encephalopathy. 7. Acute pulmonary edema. CONSULTATIONS: Dr. Lazaro Thomson with Critical Care, Dr. Daphne Hernandez with Cardiology, Dr. George Phelps with Electrophysiology. BRIEF HISTORY OF PRESENT ILLNESS: This is a 73-year-old male with a past medical history of hypertension, diabetes, obesity, was presented to the hospital with dizziness, shortness of breath, and palpitations. The patient was known to have a heart rate in the 160s and was given a dose of adenosine with no effect. He was started on a diltiazem drip and brought to the emergency room. His EKG had shown atrial fibrillation. He had a CT scan of his chest, which showed right middle lobe consolidation. He also had a white blood cell count of 10.3 and was admitted to the hospital for further workup. He was started on ceftriaxone and azithromycin and admitted for further workup. HOSPITAL COURSE: Acute hypoxic respiratory failure secondary to sepsis from pneumonia versus pulmonary edema: The patient was originally started on ceftriaxone and azithromycin, but was eventually switched to doxycycline due to his atrial fibrillation to avoid QT prolongation. He was was weaned down to room air prior to discharge. Chest x-ray on the showed some pulmonary vascular congestion and he did receive some IV Lasix. ECHO showed an EF of 50% to 55%, mild MR, and mild TR. He did have a slightly elevated troponins, but had no evidence of chest pain. He completed 7 days of ceftriaxone and doxycycline while in the hospital. He was followed by Pulmonary, who prescribed an additional few days worth of doxycycline on discharge. Atrial flutter with RVR: The patient was noted to have an elevated heart rate in the 140s. He was on a Cardizem drip, but then was switched to an amiodarone drip. He was seen by EP and he underwent JUNIOR with cardioversion by Dr. Hernandez on 07/18. He was switched over to oral amiodarone 400 mg b.i.d. on the , and on discharge was transitioned to 200 mg twice daily for ease of compliance. He needs to follow up with Dr. George Phelps within a month for an outpatient ablation. The patient was also started on Eliquis by Cardiology 5 mg twice daily. Hypertensive urgency: The patient was noted to have elevated blood pressures from 150s over 80s. He was started on losartan 50 mg daily and metoprolol 100 mg twice daily in the hospital. He will need to follow up with his PCP for further titration of his blood pressures. Acute encephalopathy: The patient did have an episode of extreme agitation, which required him to be in the ICU and sedated on a Precedex drip. We were unsure if there was some component of alcohol withdrawal. He was started on thiamine and folic acid with improvement in his mental status. The patient remained confused for several days and appeared to be suffering some delirium, especially at night. The patient did state that he does not drink any alcohol. These supplements were discontinued on discharge. Patient had stated he had gotten in a fight with his daughter and did not want to stay with her. Daughter was informed who felt patient gets confused sometimes and did not feel comfortable with that plan. Case management was unable to set up home health. He was picked up by the daughter on discharge. Anemia: The patient did have some anemia during his hospitalization, which resolved. His B12 and folate levels are normal and his TSH level is normal. DISCHARGE PHYSICAL EXAMINATION: VITAL SIGNS: Temperature 97.7, heart rate 76, respiratory rate 16, O2 saturation 100% on room air, blood pressure of 166/77. GENERAL: The patient is alert, awake, oriented x3. CVS: Regular in rate and rhythm with no murmurs, rubs, or gallops. LUNGS: Clear to auscultation bilaterally. ABDOMEN: Positive bowel sounds, soft, nontender, nondistended. EXTREMITIES: No edema. PERTINENT LABORATORY DATA: CBC 07/18: Unremarkable. BMP 07/18: Sodium 135, creatinine 1.05. Lactic acid: 1.5. Magnesium: 2.6. Troponin I: 0.093, 0.111, 0.122, 0.212. CK-MB: 4.7. Vitamin B12: 352. Folate: 10. TSH: 0.6725. IMAGING: Chest x-ray 07/09: No evidence of acute disease. Chest CT 07/09: Bilateral lower lobe infiltrates with trace left pleural effusion. CT brain 07/13: No significant process. Chest x-ray 07/14: Moderate cardiomegaly with worsening pulmonary vascular congestion and worsening perihilar interstitial and airspace opacities reflecting CHF. Chest x-ray 07/16: Improving pulmonary vascular congestion. Upper extremity Dopplers: No evidence of DVT. Echo 07/14: EF 50% to 55%, moderate to severely dilated left atrium. Moderately enlarged right atrium. Moderate MR. Mild to moderate TR. JUNIOR 07/18: EF 50% to 55%. No thrombus. Mild MR. Mild TR. DISCHARGE CONDITION: Stable. ACTIVITY: As tolerated. DIET: Diabetic diet and cardiac diet. DISCHARGE MEDICATIONS: New prescriptions: 1. Eliquis 5 mg p.o. b.i.d. 2. Doxycycline 100 mg p.o. b.i.d. for 7 tablets. 3. Losartan 50 mg p.o. daily. 4. Metoprolol 100 mg p.o. b.i.d. 5. Amiodarone 200 mg p.o. b.i.d. Continued medications: 1. Metformin 850 mg p.o. t.i.d. 2. Glipizide 10 mg p.o. b.i.d. 3. Atorvastatin 10 mg p.o. at bedtime. DISCHARGE INSTRUCTIONS: The patient should follow up with his PCP and get a repeat chest x-ray in 6 weeks. He should follow up with Dr. George Phelps in 1 month for a radiofrequency ablation. Job ID: [id number]
== END 2019-07-19 15:05 | disposition home or self-care (01) | DRG 871 ==
LOC: ERS 16:42 → 2SW 18:39 → OBSVTOIN 07-11 17:34 → 2SW 07-13 18:05 → CCU 07-14 08:27 → 2NO 07-16 13:35
PROVIDERS: ADMIT Internal Medicine; ATTEND Internal Medicine
PROC: 5A2204Z Restoration of Cardiac Rhythm, Single (ICD-10-PCS; principal; 2019-07-19)
PROC: B24BZZ4 Ultrasonography of Heart with Aorta, Transesophageal (ICD-10-PCS; 2019-07-19)
DX: A41.9 Sepsis, unspecified organism (principal); J18.9 Pneumonia, unspecified organism; G93.41 Metabolic encephalopathy; J96.01 Acute respiratory failure with hypoxia; J81.0 Acute pulmonary edema; I47.1 Supraventricular tachycardia; N17.9 Acute kidney failure, unspecified; I48.3 Typical atrial flutter; Z68.41 Body mass index [BMI] 40.0-44.9, adult; Z20.828 Contact with and (suspected) exposure to other viral communicable diseases; E11.9 Type 2 diabetes mellitus without complications; I10 Essential (primary) hypertension; F17.210 Nicotine dependence, cigarettes, uncomplicated; I48.91 Unspecified atrial fibrillation; E66.01 Morbid (severe) obesity due to excess calories; D64.9 Anemia, unspecified; I34.0 Nonrheumatic mitral (valve) insufficiency; I16.0 Hypertensive urgency; Z79.899 Other long term (current) drug therapy; Z86.73 Personal history of transient ischemic attack (TIA), and cerebral infarction without residual deficits; Z79.84 Long term (current) use of oral hypoglycemic drugs
CPT/HCPCS: 36415; 36416; 70450; 71045; 71250; 80048; 80053; 81003; 82550; 82553; 82607; 82746; 83605; 83690; 83735; 84443; 84484; 85007; 85025; 85027; 87040; 87635; 87804; 92960; 93005; 93010; 93306; 93312; 93970; 94640; 94760; 96365; 96366; J0282; J0456; J0696; J1200; J1630; J1650; J1940; J2060; J2704; J2920; J3411; J3486; J3490; J7050; J7070; J7512; Q0162; U0002